=== PATIENT | female | born 1965 | race Two or more races ===

== ENCOUNTER 2020-08-20 13:59 | Inpatient (IN) | payer MEDICAID, OTHER ==
[~2020-08-20] VITALS: Ht 170.2 cm; Wt 97.8 kg
[2020-08-20] MEDS ORDERED: methylPREDNISolone SOD SUCC 125 MG/2 ML VL IV ONE (14:15)
[2020-08-20] MEDS ORDERED: ASCORBIC ACID 500 MG TAB PO ONE (14:15)
[2020-08-20] MEDS ORDERED: CHOLECALCIFEROL (VITD3) 2,000 UNIT CAP/TAB PO ONE (14:15)
[2020-08-20] MEDS ORDERED: AZITHROMYCIN 500MG/ 250ML 250 ML IV ONE (14:15)
[2020-08-20] MEDS ORDERED: ZINC SULFATE 220mg CAP or TAB PO ONE (14:15)
[2020-08-20] MEDS ORDERED: MORPHINE SULF INJ 2 MG/ML SYRINGE 1ML IV PRN ×3 (17:15→23:00)
[2020-08-20] MEDS ORDERED: NITROGLYCERIN 0.4 MG SL TAB SL PRN ×2 (17:15→23:00)
[2020-08-20] MEDS ORDERED: HYDR-4833 PO (17:46)
[2020-08-20] MEDS ORDERED: DICL25TA12 PO (17:46)
[2020-08-20] MEDS ORDERED: ROSU40TA PO (17:46)
[2020-08-20] MEDS ORDERED: CHOL20007 PO (17:46)
[2020-08-20] MEDS ORDERED: [UNRECOGNIZED DRUG - CODE] PO (17:46)
[2020-08-20] MEDS ORDERED: INSU1INJ19 SC (17:46)
[2020-08-20] MEDS ORDERED: DOCU-55 PO (17:46)
[2020-08-20] MEDS ORDERED: CLOP75TA28 PO (17:46)
[2020-08-20] MEDS ORDERED: FENO145T27 PO (17:46)
[2020-08-20] MEDS ORDERED: CARV25TA55 PO (17:46)
[2020-08-20] MEDS ORDERED: DIAZ10TA3 PO (17:46)
[2020-08-20] MEDS ORDERED: POTA8TAB2 PO (17:46)
[2020-08-20] MEDS ORDERED: INSU100I43 SC (17:46)
[2020-08-20] MEDS ORDERED: LORA-622 PO (17:46)
[2020-08-20] MEDS ORDERED: CYCL10TA6 PO (17:46)
[2020-08-20] MEDS ORDERED: FURO40TA4 PO (17:46)
[2020-08-20 18:33] LABS: Basophils # (auto) 0 10 ^3/uL (0-0.2); Basophils % (auto) 0.1 % (0.0-2.0); Eosinophils # (auto) 0 10 ^3/uL (0-0.8); Hematocrit 34.2 % (36.0-46.0); Hemoglobin 11.4 g/dL (12.2-16.2); Lymphocytes # (auto) 0.7 10 ^3/uL (0.4-5.4); Lymphocytes % (auto) 7.6 % (10.0-50.0); Mean Corpuscular Hemoglobin 29.4 pg (28.0-32.0); Mean Corpuscular Hgb Conc. 33.5 g/dL (32.0-36.0); Mean Corpuscular Volume 87.9 fL (80.0-100.0); Monocytes # (auto) 0.8 10 ^3/uL (0-1.3); Monocytes % (auto) 8.8 % (0.0-12.0); Neutrophils # (auto) 7.5 10 ^3/uL (1.6-8.6); Neutrophils % (auto) 83.5 % (37.0-80.0); Platelet Count (auto) 211 10^3/uL (140-450); Red Blood Cells 3.89 10^6/uL (4.0-5.20); Red Cell Distribution Width 15.7 % (11.8-14.3)
[2020-08-20 18:51] LABS: Albumin 2.5 g/dL (3.4-5.0); Anion Gap 7 (5-15); Blood Urea Nitrogen 65 mg/dL (7-18); Calcium 8.2 mg/dL (8.5-10.1); Carbon Dioxide 19 mmol/L (21-32); Chloride 111 mmol/L (98-107); Glucose 263 mg/dL (74-106); Potassium 4.8 mmol/L (3.5-5.1); Sodium 137 mmol/L (136-145)
[2020-08-20 19:00] LABS: Alanine Aminotransferase 39 U/L (13-56); Alkaline Phosphatase 58 U/L (45-117); Aspartate Aminotransferase 92 U/L (15-37); BUN/Creatinine Ratio 20.8; Bilirubin, Total 0.3 mg/dL (0.2-1.0); GFR African American 20 mL/min; GFR Non-African American 17 mL/min
[2020-08-20 19:11] LABS: CRP High Sensitivity > 19.0 mg/dL (< 0.3)
[2020-08-20] MEDS ORDERED: ENOXAPARIN SOD 100 MG/1 ML SYRINGE SC ONE (19:45)
[2020-08-20] MEDS: FAMOTIDINE (10MG/ML) 2ML VL IV SCH (20:47)
[2020-08-20] MEDS ORDERED: DOCUSATE SOD 100 MG CAP PO PRN (23:00)
[2020-08-20] MEDS ORDERED: ALUM & MAG HYDROX-SIMETH LIQ(MAALOX) 30 ML PO PRN (23:00)
[2020-08-20] MEDS ORDERED: ONDANSETRON HCL 4 MG/2 ML VIAL IV PRN (23:00)
[2020-08-20] MEDS ORDERED: LORazepam 0.5 MG TAB PO PRN (23:00)
[2020-08-20] MEDS ORDERED: DEXTROSE (50%) 50ML SYRG IV PRN (23:00)
[2020-08-20] MEDS ORDERED: ACETAMINOPHEN 500 MG TAB PO PRN (23:00)
[2020-08-20] MEDS ORDERED: HYDROcodone-ACET 5/325MG TAB PO PRN (23:00)
[2020-08-20] MEDS ORDERED: METOPROLOL SUCCINATE XL 50 MG TAB PO ONE (23:15)
[2020-08-21 01:00] VITALS: BP 137/68
[2020-08-21 01:34] LABS: Basophils # (auto) 0 10 ^3/uL (0-0.2); Basophils % (auto) 0.2 % (0.0-2.0); Eosinophils # (auto) 0 10 ^3/uL (0-0.8); Hemoglobin 11.3 g/dL (12.2-16.2); Lymphocytes # (auto) 0.7 10 ^3/uL (0.4-5.4); Lymphocytes % (auto) 7.6 % (10.0-50.0); Mean Corpuscular Hemoglobin 29.2 pg (28.0-32.0); Mean Corpuscular Hgb Conc. 33.3 g/dL (32.0-36.0); Mean Corpuscular Volume 87.7 fL (80.0-100.0); Monocytes # (auto) 0.8 10 ^3/uL (0-1.3); Monocytes % (auto) 8.3 % (0.0-12.0); Neutrophils # (auto) 8.1 10 ^3/uL (1.6-8.6); Neutrophils % (auto) 83.9 % (37.0-80.0); Platelet Count (auto) 244 10^3/uL (140-450); Red Blood Cells 3.88 10^6/uL (4.0-5.20); Red Cell Distribution Width 15.5 % (11.8-14.3); White Blood Cell 9.7 10^3/uL (4.4-10.8)
[2020-08-21 01:50] LABS: Chloride 111 mmol/L (98-107); Lactic Acid w/Reflex 2.3 mmol/L (0.4-2.0); Potassium 5.4 mmol/L (3.5-5.1); Sodium 138 mmol/L (136-145)
[2020-08-21 02:05] LABS: Alanine Aminotransferase 41 U/L (13-56); Albumin 2.5 g/dL (3.4-5.0); Alkaline Phosphatase 68 U/L (45-117); Anion Gap 5 (5-15); Aspartate Aminotransferase 95 U/L (15-37); BUN/Creatinine Ratio 24.9; Bilirubin, Total 0.3 mg/dL (0.2-1.0); Blood Urea Nitrogen 67 mg/dL (7-18); Calcium 8.5 mg/dL (8.5-10.1); Carbon Dioxide 22 mmol/L (21-32); GFR African American 24 mL/min; GFR Non-African American 20 mL/min; Glucose 331 mg/dL (74-106); Lactate Dehydrogenase 884 U/L (84-246); Magnesium 2.3 mg/dL (1.6-2.6); Total Protein 7.1 g/dL (6.4-8.2)
[2020-08-21 02:22] LABS: CRP High Sensitivity > 19.0 mg/dL (< 0.3)
[2020-08-21] MEDS ORDERED: BISA-3 PO (03:46)
[2020-08-21] MEDS ORDERED: FUROSEMIDE 20 MG/2 ML VIAL IV SCH (06:00)
[2020-08-21 06:13] LABS: Basophils # (auto) 0 10 ^3/uL (0-0.2); Basophils % (auto) 0.1 % (0.0-2.0); Eosinophils # (auto) 0 10 ^3/uL (0-0.8); Hemoglobin 11.5 g/dL (12.2-16.2); Lymphocytes # (auto) 0.9 10 ^3/uL (0.4-5.4); Lymphocytes % (auto) 8.3 % (10.0-50.0); Mean Corpuscular Hemoglobin 29.6 pg (28.0-32.0); Monocytes # (auto) 1.1 10 ^3/uL (0-1.3); Neutrophils # (auto) 8.6 10 ^3/uL (1.6-8.6); Neutrophils % (auto) 81.6 % (37.0-80.0); Platelet Count (auto) 245 10^3/uL (140-450); Red Blood Cells 3.91 10^6/uL (4.0-5.20); Red Cell Distribution Width 15.6 % (11.8-14.3); White Blood Cell 10.6 10^3/uL (4.4-10.8)
[2020-08-21 06:24] LABS: Partial Thromboplastin Time 38.4 sec (23.0-31.2)
[2020-08-21] MEDS: ACCU-CHEK COMFORT CURVE STRIP VI SCH ×4 (06:31→21:01)
[2020-08-21 06:32] LABS: Potassium 4.6 mmol/L (3.5-5.1)
[2020-08-21] MEDS: InsuLIN REG 1unit/0.01ml Soln (100units/ml) SC SCH ×4 (06:36→21:13)
[2020-08-21 06:44] LABS: Albumin 2.5 g/dL (3.4-5.0); BUN/Creatinine Ratio 25.2; Bilirubin, Total 0.3 mg/dL (0.2-1.0); Calcium 8.5 mg/dL (8.5-10.1); Magnesium 2.4 mg/dL (1.6-2.6); Phosphorus 3.8 mg/dL (2.5-4.90); Total Protein 7.3 g/dL (6.4-8.2)
[2020-08-21] MEDS ORDERED: FUROSEMIDE 40 MG/4 ML VIAL IV ONE (06:45)
[2020-08-21] MEDS: FUROSEMIDE 40 MG/4 ML VIAL IV SCH ×2 (06:58→17:51)
[2020-08-21 08:00] VITALS: BP 132/69
[2020-08-21] MEDS ORDERED: IVERMECTIN 3 MG TAB PO ONE (10:00)
[2020-08-21] MEDS: BUDESONIDE (INHALATION) 180 MCG IH IN SCH ×3 (10:00→21:59)
[2020-08-21] MEDS: DexAMETHasone SOD PHOS 10MG/1ML VIAL INJ IV SCH (10:17)
[2020-08-21] MEDS: ASPirin 81 mg TAB PO SCH (10:17)
[2020-08-21] MEDS: AZITHROMYCIN 500MG/ 250ML 250 ML IV SCH (10:17)
[2020-08-21] MEDS: ZINC SULFATE 220mg CAP or TAB PO SCH (10:17)
[2020-08-21] MEDS: FAMOTIDINE (10MG/ML) 2ML VL IV SCH (10:17)
[2020-08-21] MEDS: METOPROLOL SUCCINATE XL 50 MG TAB PO SCH (10:18)
[2020-08-21] MEDS: ASCORBIC ACID 1,000 MG TAB PO SCH (10:18)
[2020-08-21] MEDS: CHOLECALCIFEROL (VITD3) 2,000 UNIT CAP/TAB PO SCH (10:18)
[2020-08-21 16:00] VITALS: BP 110/58
[2020-08-21] MEDS: ENOXAPARIN SOD 100 MG/1 ML SYRINGE SC SCH (17:50)
[2020-08-21 19:54] LABS: Urine Bacteria FEW /hpf (None Seen); Urine Blood 2+ /uL (Negative); Urine Hyaline Cast FEW /lpf (0 - 2); Urine Mucus FEW (None Seen); Urine Specific Gravity 1.014 (1.001-1.035); Urine WBC 1 /hpf (0 - 5)
[2020-08-21 20:03] LABS: Amphetamine Screen, Urine NEGATIVE (NEGATIVE); Barbiturate Scree,Urine NEGATIVE (NEGATIVE); Benzodiazephine Screen, Urine POSITIVE (NEGATIVE); Cannabinoid Screen, Urine NEGATIVE (NEGATIVE); Cocaine Screen, Urine NEGATIVE (NEGATIVE); Opiate Scree,Urine NEGATIVE (NEGATIVE); Phencyclidine Screen, Urine NEGATIVE (NEGATIVE)
[2020-08-21] MEDS: ATORVASTATIN 20 MG TAB PO SCH (21:14)
[2020-08-21] MEDS: ALBUTEROL SULF HFA 90MCG INH 200DOSE IN PRN (21:59)
[2020-08-22 00:30] VITALS: BP 143/79
[2020-08-22] MEDS: FUROSEMIDE 40 MG/4 ML VIAL IV SCH ×2 (06:00→18:26)
[2020-08-22] MEDS: InsuLIN REG 1unit/0.01ml Soln (100units/ml) SC SCH ×4 (06:02→21:58)
[2020-08-22] MEDS: INSULIN LANTUS (GLARGINE) 1 /0.01ml (100units/ml) SC SCH ×2 (06:03→22:12)
[2020-08-22] MEDS: ACCU-CHEK COMFORT CURVE STRIP VI SCH ×4 (06:04→22:11)
[2020-08-22] MEDS: ALBUTEROL SULF HFA 90MCG INH 200DOSE IN PRN ×2 (07:06→21:50)
[2020-08-22] MEDS: BUDESONIDE (INHALATION) 180 MCG IH IN SCH ×2 (07:06→21:50)
[2020-08-22 07:14] LABS: Basophils # (auto) 0 10 ^3/uL (0-0.2); Basophils % (auto) 0.1 % (0.0-2.0); Eosinophils # (auto) 0 10 ^3/uL (0-0.8); Hemoglobin 12.4 g/dL (12.2-16.2); Lymphocytes # (auto) 1.5 10 ^3/uL (0.4-5.4); Lymphocytes % (auto) 8.9 % (10.0-50.0); Mean Corpuscular Hemoglobin 29.1 pg (28.0-32.0); Mean Corpuscular Hgb Conc. 33.5 g/dL (32.0-36.0); Mean Corpuscular Volume 86.8 fL (80.0-100.0); Monocytes # (auto) 1.7 10 ^3/uL (0-1.3); Monocytes % (auto) 10.4 % (0.0-12.0); Neutrophils # (auto) 13.2 10 ^3/uL (1.6-8.6); Neutrophils % (auto) 80.6 % (37.0-80.0); Nucleated Red Blood Cells % 0.1 %; Platelet Count (auto) 339 10^3/uL (140-450); Red Blood Cells 4.26 10^6/uL (4.0-5.20); Red Cell Distribution Width 15.6 % (11.8-14.3); White Blood Cell 16.3 10^3/uL (4.4-10.8)
[2020-08-22 07:24] LABS: Albumin 2.6 g/dL (3.4-5.0); Calcium 9.3 mg/dL (8.5-10.1); Magnesium 2.4 mg/dL (1.6-2.6); Potassium 4.5 mmol/L (3.5-5.1)
[2020-08-22 07:25] LABS: INR 0.99 (0.9-1.15); Partial Thromboplastin Time 33.6 sec (23.0-31.2)
[2020-08-22 07:28] LABS: BUN/Creatinine Ratio 26.3; Bilirubin, Total 0.3 mg/dL (0.2-1.0); Phosphorus 2.4 mg/dL (2.5-4.90); Total Protein 7.8 g/dL (6.4-8.2)
[2020-08-22 07:59] VITALS: BP 120/60
[2020-08-22] MEDS: DexAMETHasone SOD PHOS 10MG/1ML VIAL INJ IV SCH (09:52)
[2020-08-22] MEDS: AZITHROMYCIN 500MG/ 250ML 250 ML IV SCH (09:53)
[2020-08-22] MEDS: ASPirin 81 mg TAB PO SCH (09:53)
[2020-08-22] MEDS: FAMOTIDINE (10MG/ML) 2ML VL IV SCH (09:53)
[2020-08-22] MEDS: ZINC SULFATE 220mg CAP or TAB PO SCH (09:53)
[2020-08-22] MEDS: CHOLECALCIFEROL (VITD3) 2,000 UNIT CAP/TAB PO SCH (09:54)
[2020-08-22] MEDS: METOPROLOL SUCCINATE XL 50 MG TAB PO SCH (09:54)
[2020-08-22] MEDS: ASCORBIC ACID 1,000 MG TAB PO SCH (09:54)
[2020-08-22] MEDS ORDERED: cefTRIAXone 1GM/50ML D5W 50 ML IV ONE (15:45)
[2020-08-22] MEDS ORDERED: REMDESIVIR PER PHARMACY 0 ML IV SCH (15:45)
[2020-08-22 15:56] VITALS: BP 111/66
[2020-08-22] MEDS ORDERED: REMDESIVIR 100mg 100 MG in SODIUM CHL 0.9% 230 ML IV ONE (17:00)
[2020-08-22] MEDS: ENOXAPARIN SOD 100 MG/1 ML SYRINGE SC SCH (18:27)
[2020-08-22] MEDS ORDERED: diphenhdrAMINE HCL 50 MG/1 ML VL IV ONE (20:00)
[2020-08-22] MEDS ORDERED: methylPREDNISolone SOD SUCC 40 MG/ML VL IV ONE (20:00)
[2020-08-22] MEDS ORDERED: ACETAMINOPHEN 650 mg PER 20.3 mL UD PO ONE (20:00)
[2020-08-22] MEDS ORDERED: methylPREDNISolone SOD SUCC 40 MG/ML VL ONE (20:06)
[2020-08-22] MEDS ORDERED: TOCILIZUMAB 400 MG in SODIUM CHL 0.9% 80 ML IV ONE (20:30)
[2020-08-22] MEDS: ATORVASTATIN 20 MG TAB PO SCH (21:54)
[2020-08-23] VITALS: BP 138/67
[2020-08-23] MEDS: FUROSEMIDE 40 MG/4 ML VIAL IV SCH (06:44)
[2020-08-23] MEDS: InsuLIN REG 1unit/0.01ml Soln (100units/ml) SC SCH ×4 (06:47→21:45)
[2020-08-23] MEDS: INSULIN LANTUS (GLARGINE) 1 /0.01ml (100units/ml) SC SCH ×2 (06:48→22:30)
[2020-08-23] MEDS: ACCU-CHEK COMFORT CURVE STRIP VI SCH ×4 (07:00→21:47)
[2020-08-23 08:00] VITALS: BP 134/100
[2020-08-23] MEDS: cefTRIAXone 1GM/50ML D5W 50 ML IV SCH (08:57)
[2020-08-23] MEDS ORDERED: methylPREDNISolone SOD SUCC 40 MG/ML VL IV ONE (10:00)
[2020-08-23] MEDS: BUDESONIDE (INHALATION) 180 MCG IH IN SCH ×3 (10:00→20:41)
[2020-08-23] MEDS ORDERED: diphenhdrAMINE HCL 50 MG/1 ML VL IV ONE (10:00)
[2020-08-23] MEDS ORDERED: ACETAMINOPHEN 650 mg PER 20.3 mL UD PO ONE (10:00)
[2020-08-23] MEDS: ASPirin 81 mg TAB PO SCH (10:28)
[2020-08-23] MEDS: ZINC SULFATE 220mg CAP or TAB PO SCH (10:28)
[2020-08-23] MEDS: METOPROLOL SUCCINATE XL 50 MG TAB PO SCH (10:28)
[2020-08-23] MEDS: CHOLECALCIFEROL (VITD3) 2,000 UNIT CAP/TAB PO SCH (10:29)
[2020-08-23] MEDS: DexAMETHasone SOD PHOS 10MG/1ML VIAL INJ IV SCH (10:29)
[2020-08-23] MEDS: ASCORBIC ACID 1,000 MG TAB PO SCH (10:29)
[2020-08-23] MEDS: FAMOTIDINE (10MG/ML) 2ML VL IV SCH (10:29)
[2020-08-23] MEDS ORDERED: TOCILIZUMAB 400 MG in SODIUM CHL 0.9% 80 ML IV ONE (10:30)
[2020-08-23 10:36] LABS: Albumin 2.4 g/dL (3.4-5.0); Anion Gap 8 (5-15); Blood Urea Nitrogen 79 mg/dL (7-18); Calcium 9.1 mg/dL (8.5-10.1); Carbon Dioxide 20 mmol/L (21-32); Chloride 109 mmol/L (98-107); Glucose 339 mg/dL (74-106); Sodium 137 mmol/L (136-145)
[2020-08-23 10:46] LABS: Alanine Aminotransferase 37 U/L (13-56); Alkaline Phosphatase 146 U/L (45-117); Aspartate Aminotransferase 72 U/L (15-37); BUN/Creatinine Ratio 27.2; Bilirubin, Total 0.3 mg/dL (0.2-1.0); GFR African American 22 mL/min; GFR Non-African American 18 mL/min; Lactate Dehydrogenase 1331 U/L (84-246); Total Protein 7.8 g/dL (6.4-8.2)
[2020-08-23 10:51] LABS: CRP High Sensitivity > 19 mg/dL (< 0.3)
[2020-08-23] MEDS: AZITHROMYCIN 500MG/ 250ML 250 ML IV SCH (12:49)
[2020-08-23 13:30] VITALS: BP 133/89
[2020-08-23] MEDS: SODIUM BICARBONATE 50ML VIAL 50 ML in SOD CHL 0.45% 1,000 ML IV SCH ×2 (15:30→23:52)
[2020-08-23] MEDS: REMDESIVIR 100mg 50 MG in SODIUM CHL 0.9% 240 ML IV SCH (15:45)
[2020-08-23 16:00] VITALS: BP 143/91
[2020-08-23] MEDS: ENOXAPARIN SOD 100 MG/1 ML SYRINGE SC SCH (17:06)
[2020-08-23 17:54] LABS: Urine Bacteria NONE SEEN /hpf (None Seen); Urine Blood 2+ /uL (Negative); Urine Hyaline Cast FEW /lpf (0 - 2); Urine Specific Gravity 1.018 (1.001-1.035); Urine WBC 3 /hpf (0 - 5)
[2020-08-23 18:09] LABS: Creatinine, Urine 99 mg/dL (30.0-125.0); Sodium Urine 35 mmol/L (40-220)
[2020-08-23] MEDS: ALBUTEROL SULF HFA 90MCG INH 200DOSE IN PRN (20:41)
[2020-08-23] MEDS: DOPamine 1600MCG/ML D5W 250 ML IV SCH (20:47)
[2020-08-23] MEDS: ATORVASTATIN 20 MG TAB PO SCH (21:47)
[2020-08-24] VITALS (57 sets, daily range): BP systolic 58–192; BP diastolic 26–81
[2020-08-24] MEDS: BUDESONIDE (INHALATION) 180 MCG IH IN SCH ×2 (06:37→22:00)
[2020-08-24] MEDS: ALBUTEROL SULF HFA 90MCG INH 200DOSE IN PRN (06:37)
[2020-08-24] MEDS: InsuLIN REG 1unit/0.01ml Soln (100units/ml) SC SCH ×4 (06:52→22:00)
[2020-08-24] MEDS: ACCU-CHEK COMFORT CURVE STRIP VI SCH ×4 (06:53→22:00)
[2020-08-24] MEDS: INSULIN LANTUS (GLARGINE) 1 /0.01ml (100units/ml) SC SCH ×2 (06:53→22:00)
[2020-08-24 07:48] LABS: Red Blood Cells 4.49 10^6/uL (4.0-5.20)
[2020-08-24 07:51] LABS: Hematocrit 39.2 % (36.0-46.0); Hemoglobin 13.2 g/dL (12.2-16.2); Mean Corpuscular Hemoglobin 29.5 pg (28.0-32.0); Mean Corpuscular Hgb Conc. 33.7 g/dL (32.0-36.0); Mean Corpuscular Volume 87.4 fL (80.0-100.0); Platelet Count (auto) 465 10^3/uL (140-450); White Blood Cell 28.6 10^3/uL (4.4-10.8)
[2020-08-24 07:57] LABS: Basophils % (manual) 0 (0.0-2.0); Blast Cells 0; Eosinophils % (manual) 0 (0-7); Promyelocytes % 0; Reactive Lymphocytes 0
[2020-08-24 08:15] LABS: Albumin 2.4 g/dL (3.4-5.0); Potassium 5.1 mmol/L (3.5-5.1)
[2020-08-24 08:18] LABS: Bilirubin, Total 0.3 mg/dL (0.2-1.0); Total Protein 7.9 g/dL (6.4-8.2)
[2020-08-24] MEDS ORDERED: PROPOFOL 100 ML IV ONE (09:53)
[2020-08-24] MEDS: METOPROLOL SUCCINATE XL 50 MG TAB PO SCH (10:00)
[2020-08-24] MEDS: AZITHROMYCIN 500MG/ 250ML 250 ML IV SCH (10:00)
[2020-08-24] MEDS ORDERED: NOREPINEPHRINE 8 MG/250ML KIT 250 ML IV ONE (11:03)
[2020-08-24] MEDS ORDERED: EPINEPHrine HCL 1 MG/10 ML SYRG IV ONE (12:04)
[2020-08-24] MEDS: cefTRIAXone 1GM/50ML D5W 50 ML IV SCH (12:30)
[2020-08-24] MEDS: NOREPINEPHRINE 8 MG/250ML KIT 250 ML IV SCH (12:45)
[2020-08-24] MEDS: PROPOFOL 100 ML IV SCH ×2 (12:55→21:30)
[2020-08-24] MEDS: fentaNYL Drip 2500mCg/250mlNS 250 ML IV SCH ×2 (13:00→23:05)
[2020-08-24 13:06] LABS: Band Neutrophils % (manual) 2; Lymphocytes % (manual) 9 (10.0-50.0); Metamyelocytes % 2; Monocytes % (manual) 6 (0-12); Myelocytes % 2
[2020-08-24] MEDS ORDERED: MIDAZOLAM DRIP 50 mg/50mL 50 ML IV ONE ×2 (13:08→17:23)
[2020-08-24] MEDS ORDERED: LORazepam 2MG/ML-1ML VIAL ONE (15:44)
[2020-08-24] MEDS: FAMOTIDINE (10MG/ML) 2ML VL IV SCH (16:16)
[2020-08-24] MEDS: ZINC SULFATE 220mg CAP or TAB PO SCH (16:16)
[2020-08-24] MEDS: ASPirin 81 mg TAB PO SCH (16:16)
[2020-08-24] MEDS: ASCORBIC ACID 1,000 MG TAB PO SCH (16:23)
[2020-08-24] MEDS: CHOLECALCIFEROL (VITD3) 2,000 UNIT CAP/TAB PO SCH (16:24)
[2020-08-24] MEDS: DexAMETHasone SOD PHOS 10MG/1ML VIAL INJ IV SCH (16:24)
[2020-08-24] MEDS ORDERED: SODIUM BICARBONATE 8.4 % INJ 50ML VIAL IV ONE (16:35)
[2020-08-24] MEDS ORDERED: PANTOPRAZOLE 40 MG/10 ML VIAL INJ IV ONE (16:45)
[2020-08-24] MEDS: REMDESIVIR 100mg 50 MG in SODIUM CHL 0.9% 240 ML IV SCH (17:00)
[2020-08-24] MEDS: SODIUM BICARBONATE 50ML VIAL 50 ML in SOD CHL 0.45% 1,000 ML IV SCH (17:00)
[2020-08-24] MEDS: DOPamine 1600MCG/ML D5W 250 ML IV SCH (18:00)
[2020-08-24] MEDS ORDERED: FLUCONAZOLE 200MG/100ML 100 ML IV ONE (18:00)
[2020-08-24] MEDS ORDERED: LORazepam 2MG/ML-1ML VIAL IV PRN (18:30)
[2020-08-24] MEDS: PIPERACILLIN-TAZOB 2.25GM 50 ML IV SCH ×2 (20:44→23:58)
[2020-08-24] MEDS: ENOXAPARIN SOD 100 MG/1 ML SYRINGE SC SCH (22:00)
[2020-08-24] MEDS ORDERED: PIPERACILLIN-TAZOB 3.375GM 100 ML IV SCH (22:00)
[2020-08-24] MEDS: ATORVASTATIN 20 MG TAB PO SCH (22:00)
[2020-08-24] MEDS: MIDAZOLAM DRIP 50 mg/50mL 50 ML IV SCH (22:30)
[2020-08-25] VITALS (96 sets, daily range): BP systolic 87–171; BP diastolic 50–81
[2020-08-25] MEDS: PROPOFOL 100 ML IV SCH ×3 (00:30→11:27)
[2020-08-25] MEDS: MIDAZOLAM DRIP 50 mg/50mL 50 ML IV SCH ×3 (01:30→08:00)
[2020-08-25] MEDS: SODIUM BICARBONATE 50ML VIAL 50 ML in SOD CHL 0.45% 1,000 ML IV SCH ×3 (04:39→20:00)
[2020-08-25] MEDS ORDERED: SODIUM BICARBONATE 8.4 % INJ 50ML VIAL IV ONE ×2 (05:28→16:50)
[2020-08-25] MEDS: PIPERACILLIN-TAZOB 2.25GM 50 ML IV SCH ×3 (06:00→18:18)
[2020-08-25] MEDS: INSULIN LANTUS (GLARGINE) 1 /0.01ml (100units/ml) SC SCH ×2 (06:31→21:26)
[2020-08-25] MEDS: InsuLIN REG 1unit/0.01ml Soln (100units/ml) SC SCH ×4 (06:31→21:26)
[2020-08-25] MEDS: ACCU-CHEK COMFORT CURVE STRIP VI SCH ×4 (06:32→21:25)
[2020-08-25 06:51] LABS: Hematocrit 32.8 % (36.0-46.0); Hemoglobin 11.8 g/dL (12.2-16.2); Mean Corpuscular Hemoglobin 31.6 pg (28.0-32.0); Mean Corpuscular Hgb Conc. 35.8 g/dL (32.0-36.0); Mean Corpuscular Volume 88.1 fL (80.0-100.0); Platelet Count (auto) 425 10^3/uL (140-450); Red Blood Cells 3.73 10^6/uL (4.0-5.20); White Blood Cell 25.9 10^3/uL (4.4-10.8)
[2020-08-25 06:57] LABS: Basophils % (manual) 0 (0.0-2.0); Blast Cells 0; Eosinophils % (manual) 0 (0-7); Metamyelocytes % 0; Promyelocytes % 0; Reactive Lymphocytes 0
[2020-08-25 07:15] LABS: Calcium 7.4 mg/dL (8.5-10.1); Potassium 5.5 mmol/L (3.5-5.1)
[2020-08-25 07:23] LABS: Bilirubin, Total 0.6 mg/dL (0.2-1.0)
[2020-08-25] MEDS: ASPirin 81 mg TAB PO SCH (09:35)
[2020-08-25] MEDS: FAMOTIDINE (10MG/ML) 2ML VL IV SCH (09:35)
[2020-08-25] MEDS: SODIUM ZIRCONIUM CYCL 10 GM PAK GT SCH ×2 (09:35→20:23)
[2020-08-25] MEDS: ZINC SULFATE 220mg CAP or TAB PO SCH (09:35)
[2020-08-25] MEDS: ASCORBIC ACID 1,000 MG TAB PO SCH (09:35)
[2020-08-25] MEDS: DexAMETHasone SOD PHOS 10MG/1ML VIAL INJ IV SCH (09:35)
[2020-08-25] MEDS: CHOLECALCIFEROL (VITD3) 2,000 UNIT CAP/TAB PO SCH (09:35)
[2020-08-25] MEDS: AZITHROMYCIN 500MG/ 250ML 250 ML IV SCH (09:35)
[2020-08-25] MEDS: PANTOPRAZOLE 40 MG/10 ML VIAL INJ IV SCH (10:00)
[2020-08-25] MEDS: FLUCONAZOLE 200MG/100ML 100 ML IV SCH (11:45)
[2020-08-25 12:24] LABS: Monocytes % (manual) 4 (0-12); Myelocytes % 1
[2020-08-25 12:25] LABS: Band Neutrophils % (manual) 7; Lymphocytes % (manual) 6 (10.0-50.0)
[2020-08-25] MEDS: NOREPINEPHRINE 8 MG/250ML KIT 250 ML IV SCH (12:45)
[2020-08-25 13:15] LABS: BUN/Creatinine Ratio 28.3; Total Protein 6.3 g/dL (6.4-8.2)
[2020-08-25] MEDS: REMDESIVIR 100mg 50 MG in SODIUM CHL 0.9% 240 ML IV SCH (17:08)
[2020-08-25] MEDS: DOPamine 1600MCG/ML D5W 250 ML IV SCH (18:18)
[2020-08-25] MEDS: ENOXAPARIN SOD 100 MG/1 ML SYRINGE SC SCH (18:18)
[2020-08-25] MEDS: ATORVASTATIN 20 MG TAB PO SCH (20:23)
[2020-08-26] VITALS (94 sets, daily range): BP systolic 109–180; BP diastolic 51–83
[2020-08-26 01:48] LABS: Hematocrit 32.2 % (36.0-46.0); Hemoglobin 11.5 g/dL (12.2-16.2); Mean Corpuscular Hemoglobin 31.1 pg (28.0-32.0); Mean Corpuscular Hgb Conc. 35.8 g/dL (32.0-36.0); Mean Corpuscular Volume 87.1 fL (80.0-100.0); Platelet Count (auto) 426 10^3/uL (140-450); Red Cell Distribution Width 15.7 % (11.8-14.3); White Blood Cell 29.3 10^3/uL (4.4-10.8)
[2020-08-26 01:49] LABS: Basophils % (manual) 0 (0.0-2.0); Blast Cells 0; Eosinophils % (manual) 0 (0-7); Metamyelocytes % 0; Myelocytes % 0; Promyelocytes % 0; Reactive Lymphocytes 0
[2020-08-26 02:08] LABS: Albumin 1.9 g/dL (3.4-5.0); Calcium 7.7 mg/dL (8.5-10.1); Potassium 5.1 mmol/L (3.5-5.1)
[2020-08-26 02:16] LABS: Band Neutrophils % (manual) 11; Lymphocytes % (manual) 3 (10.0-50.0); Monocytes % (manual) 4 (0-12)
[2020-08-26 02:20] LABS: Bilirubin, Total 0.6 mg/dL (0.2-1.0)
[2020-08-26 02:54] LABS: BUN/Creatinine Ratio 28.3
[2020-08-26 02:59] LABS: Total Protein 5.6 g/dL (6.4-8.2)
[2020-08-26] MEDS: SODIUM BICARBONATE 50ML VIAL 50 ML in SOD CHL 0.45% 1,000 ML IV SCH ×3 (04:00→21:00)
[2020-08-26] MEDS: PIPERACILLIN-TAZOB 2.25GM 50 ML IV SCH ×3 (05:51→12:05)
[2020-08-26] MEDS: InsuLIN REG 1unit/0.01ml Soln (100units/ml) SC SCH ×4 (06:01→21:29)
[2020-08-26] MEDS: INSULIN LANTUS (GLARGINE) 1 /0.01ml (100units/ml) SC SCH ×2 (06:02→21:30)
[2020-08-26] MEDS: ACCU-CHEK COMFORT CURVE STRIP VI SCH ×4 (06:03→21:34)
[2020-08-26] MEDS: PROPOFOL 100 ML IV SCH ×2 (09:14→13:14)
[2020-08-26] MEDS: MIDAZOLAM DRIP 50 mg/50mL 50 ML IV SCH ×2 (09:15→13:30)
[2020-08-26] MEDS: FAMOTIDINE (10MG/ML) 2ML VL IV SCH (10:00)
[2020-08-26] MEDS: CHOLECALCIFEROL (VITD3) 2,000 UNIT CAP/TAB PO SCH (10:00)
[2020-08-26] MEDS: PANTOPRAZOLE 40 MG/10 ML VIAL INJ IV SCH (10:00)
[2020-08-26] MEDS: ASCORBIC ACID 1,000 MG TAB PO SCH (10:00)
[2020-08-26] MEDS: FLUCONAZOLE 200MG/100ML 100 ML IV SCH (10:31)
[2020-08-26] MEDS: SODIUM ZIRCONIUM CYCL 10 GM PAK GT SCH ×2 (10:31→21:45)
[2020-08-26] MEDS: DexAMETHasone SOD PHOS 10MG/1ML VIAL INJ IV SCH (10:31)
[2020-08-26] MEDS: ASPirin 81 mg TAB PO SCH (10:31)
[2020-08-26] MEDS: ZINC SULFATE 220mg CAP or TAB PO SCH (10:31)
[2020-08-26] MEDS: fentaNYL Drip 2500mCg/250mlNS 250 ML IV SCH (11:10)
[2020-08-26] MEDS: NOREPINEPHRINE 8 MG/250ML KIT 250 ML IV SCH (12:45)
[2020-08-26] MEDS ORDERED: SODIUM ZIRCONIUM CYCL 10 GM PAK PO ONE (14:30)
[2020-08-26] MEDS: DOPamine 1600MCG/ML D5W 250 ML IV SCH (15:30)
[2020-08-26] MEDS: REMDESIVIR 100mg 50 MG in SODIUM CHL 0.9% 240 ML IV SCH (15:30)
[2020-08-26] MEDS: hydrALAZINE HCL 20 MG/ML VL IV PRN (16:45)
[2020-08-26] MEDS: ENOXAPARIN SOD 100 MG/1 ML SYRINGE SC SCH (18:26)
[2020-08-26] MEDS: MEROPENEM 1GM IVPB 100 ML IV SCH (21:45)
[2020-08-26] MEDS: ATORVASTATIN 20 MG TAB PO SCH (21:46)
[2020-08-26] MEDS: LINEZOLID 600MG/300ML 300 ML IV SCH (22:00)
[2020-08-27] VITALS (85 sets, daily range): BP systolic 92–170; BP diastolic 45–73
[2020-08-27 04:27] LABS: Hemoglobin 11.3 g/dL (12.2-16.2); Mean Corpuscular Hemoglobin 30.7 pg (28.0-32.0)
[2020-08-27 04:32] LABS: Mean Corpuscular Hgb Conc. 35.3 g/dL (32.0-36.0); Mean Corpuscular Volume 87.1 fL (80.0-100.0); Platelet Count (auto) 451 10^3/uL (140-450); Red Blood Cells 3.67 10^6/uL (4.0-5.20); Red Cell Distribution Width 16.2 % (11.8-14.3)
[2020-08-27 04:50] LABS: Basophils % (manual) 0 (0.0-2.0); Blast Cells 0; Eosinophils % (manual) 0 (0-7); Metamyelocytes % 0; Myelocytes % 0; Promyelocytes % 0; Reactive Lymphocytes 0; White Blood Cell 36.1 10^3/uL (4.4-10.8)
[2020-08-27 05:03] LABS: Albumin 1.9 g/dL (3.4-5.0); Bilirubin, Total 0.6 mg/dL (0.2-1.0); Calcium 7.5 mg/dL (8.5-10.1)
[2020-08-27 05:29] LABS: BUN/Creatinine Ratio 30.9; Total Protein 5.9 g/dL (6.4-8.2)
[2020-08-27 06:10] LABS: Band Neutrophils % (manual) 13; Lymphocytes % (manual) 5 (10.0-50.0); Monocytes % (manual) 4 (0-12)
[2020-08-27] MEDS: ACCU-CHEK COMFORT CURVE STRIP VI SCH ×4 (06:46→21:25)
[2020-08-27] MEDS: SODIUM BICARBONATE 50ML VIAL 50 ML in SOD CHL 0.45% 1,000 ML IV SCH ×2 (06:46→14:00)
[2020-08-27] MEDS: InsuLIN REG 1unit/0.01ml Soln (100units/ml) SC SCH ×4 (06:56→21:24)
[2020-08-27] MEDS: INSULIN LANTUS (GLARGINE) 1 /0.01ml (100units/ml) SC SCH ×2 (06:58→21:26)
[2020-08-27] MEDS: fentaNYL Drip 2500mCg/250mlNS 250 ML IV SCH (07:00)
[2020-08-27] MEDS: PROPOFOL 100 ML IV SCH ×3 (09:31→18:14)
[2020-08-27] MEDS: LINEZOLID 600MG/300ML 300 ML IV SCH ×2 (10:00→21:00)
[2020-08-27] MEDS: PANTOPRAZOLE 40 MG/10 ML VIAL INJ IV SCH (10:00)
[2020-08-27] MEDS: ASCORBIC ACID 1,000 MG TAB PO SCH (10:02)
[2020-08-27] MEDS: ASPirin 81 mg TAB PO SCH (10:02)
[2020-08-27] MEDS: CHOLECALCIFEROL (VITD3) 2,000 UNIT CAP/TAB PO SCH (10:02)
[2020-08-27] MEDS: ZINC SULFATE 220mg CAP or TAB PO SCH (10:02)
[2020-08-27] MEDS: DexAMETHasone SOD PHOS 10MG/1ML VIAL INJ IV SCH (10:02)
[2020-08-27] MEDS: FLUCONAZOLE 200MG/100ML 100 ML IV SCH (10:02)
[2020-08-27] MEDS: FAMOTIDINE (10MG/ML) 2ML VL IV SCH (10:02)
[2020-08-27] MEDS ORDERED: METOCLOPRAMIDE HCL 5MG/ml INJ 2ml VIAL IV ONE (11:15)
[2020-08-27] MEDS: MEROPENEM 1GM IVPB 100 ML IV SCH ×2 (11:39→22:00)
[2020-08-27] MEDS: MIDAZOLAM DRIP 50 mg/50mL 50 ML IV SCH ×2 (12:11→18:15)
[2020-08-27] MEDS: NOREPINEPHRINE 8 MG/250ML KIT 250 ML IV SCH (12:45)
[2020-08-27] MEDS ORDERED: SODIUM BICARBONATE 8.4 % INJ 50ML VIAL IV ONE (14:03)
[2020-08-27] MEDS: DOPamine 1600MCG/ML D5W 250 ML IV SCH (15:30)
[2020-08-27] MEDS: ENOXAPARIN SOD 100 MG/1 ML SYRINGE SC SCH (18:09)
[2020-08-27] MEDS: METOCLOPRAMIDE HCL 5MG/ml INJ 2ml VIAL IV SCH (21:17)
[2020-08-27] MEDS: ATORVASTATIN 20 MG TAB PO SCH (21:17)
[2020-08-28] VITALS (98 sets, daily range): BP systolic 82–136; BP diastolic 38–64
[2020-08-28 03:11] LABS: Hematocrit 27.3 % (36.0-46.0); Hemoglobin 9.5 g/dL (12.2-16.2); Mean Corpuscular Hemoglobin 30.4 pg (28.0-32.0); Mean Corpuscular Hgb Conc. 34.8 g/dL (32.0-36.0); Mean Corpuscular Volume 87.3 fL (80.0-100.0); Platelet Count (auto) 367 10^3/uL (140-450); Red Blood Cells 3.13 10^6/uL (4.0-5.20); White Blood Cell 28.9 10^3/uL (4.4-10.8)
[2020-08-28 03:18] LABS: Blast Cells 0; Myelocytes % 0; Promyelocytes % 0; Reactive Lymphocytes 0
[2020-08-28 03:26] LABS: Albumin 1.6 g/dL (3.4-5.0); Calcium 7.3 mg/dL (8.5-10.1); Potassium 4.4 mmol/L (3.5-5.1)
[2020-08-28 03:31] LABS: BUN/Creatinine Ratio 31.3; Bilirubin, Total 0.5 mg/dL (0.2-1.0)
[2020-08-28] MEDS: SODIUM BICARBONATE 50ML VIAL 50 ML in SOD CHL 0.45% 1,000 ML IV SCH (04:00)
[2020-08-28 04:08] LABS: Basophils % (manual) 1 (0.0-2.0); Eosinophils % (manual) 2 (0-7); Lymphocytes % (manual) 4 (10.0-50.0); Metamyelocytes % 2
[2020-08-28 04:09] LABS: Band Neutrophils % (manual) 18; Monocytes % (manual) 5 (0-12)
[2020-08-28] MEDS: METOCLOPRAMIDE HCL 5MG/ml INJ 2ml VIAL IV SCH ×3 (06:00→22:00)
[2020-08-28] MEDS: ACCU-CHEK COMFORT CURVE STRIP VI SCH ×4 (06:14→22:00)
[2020-08-28] MEDS: INSULIN LANTUS (GLARGINE) 1 /0.01ml (100units/ml) SC SCH ×2 (06:14→22:00)
[2020-08-28] MEDS: InsuLIN REG 1unit/0.01ml Soln (100units/ml) SC SCH ×4 (06:15→22:00)
[2020-08-28] MEDS: PROPOFOL 100 ML IV SCH ×3 (08:34→16:20)
[2020-08-28] MEDS: MIDAZOLAM DRIP 50 mg/50mL 50 ML IV SCH ×4 (08:34→18:30)
[2020-08-28] MEDS: FLUCONAZOLE 200MG/100ML 100 ML IV SCH (09:07)
[2020-08-28] MEDS: FAMOTIDINE (10MG/ML) 2ML VL IV SCH (09:12)
[2020-08-28] MEDS: PANTOPRAZOLE 40 MG/10 ML VIAL INJ IV SCH (09:12)
[2020-08-28] MEDS: ASCORBIC ACID 1,000 MG TAB PO SCH (09:13)
[2020-08-28] MEDS: ASPirin 81 mg TAB PO SCH (09:13)
[2020-08-28] MEDS: ZINC SULFATE 220mg CAP or TAB PO SCH (09:13)
[2020-08-28] MEDS: CHOLECALCIFEROL (VITD3) 2,000 UNIT CAP/TAB PO SCH (09:13)
[2020-08-28] MEDS: LINEZOLID 600MG/300ML 300 ML IV SCH ×2 (10:20→22:00)
[2020-08-28] MEDS: MEROPENEM 1GM IVPB 100 ML IV SCH ×2 (12:00→22:00)
[2020-08-28] MEDS: fentaNYL Drip 2500mCg/250mlNS 250 ML IV SCH ×2 (12:45→17:30)
[2020-08-28] MEDS: NOREPINEPHRINE 8 MG/250ML KIT 250 ML IV SCH (12:45)
[2020-08-28] MEDS: DOPamine 1600MCG/ML D5W 250 ML IV SCH (15:30)
[2020-08-28] MEDS: SOD CHL 0.45% 1,000 ML IV SCH (16:00)
[2020-08-28] MEDS: ENOXAPARIN SOD 100 MG/1 ML SYRINGE SC SCH (18:25)
[2020-08-28] MEDS: ATORVASTATIN 20 MG TAB PO SCH (22:00)
[2020-08-29] VITALS (69 sets, daily range): BP systolic 113–184; BP diastolic 48–79
[2020-08-29] MEDS: SOD CHL 0.45% 1,000 ML IV SCH ×2 (04:00→17:40)
[2020-08-29 04:39] LABS: Hematocrit 35.9 % (36.0-46.0); Hemoglobin 12.3 g/dL (12.2-16.2); Mean Corpuscular Hemoglobin 31.2 pg (28.0-32.0); Mean Corpuscular Hgb Conc. 34.2 g/dL (32.0-36.0); Mean Corpuscular Volume 91.2 fL (80.0-100.0); Platelet Count (auto) 327 10^3/uL (140-450); Red Blood Cells 3.93 10^6/uL (4.0-5.20); Red Cell Distribution Width 16.2 % (11.8-14.3)
[2020-08-29 04:57] LABS: Chloride 113 mmol/L (98-107); Potassium 4.8 mmol/L (3.5-5.1); Sodium 141 mmol/L (136-145)
[2020-08-29 05:06] LABS: Albumin 1.6 g/dL (3.4-5.0); Alkaline Phosphatase 318 U/L (45-117); Aspartate Aminotransferase 132 U/L (15-37); Bilirubin, Total 0.6 mg/dL (0.2-1.0); Calcium 7.4 mg/dL (8.5-10.1); GFR African American 47 mL/min; GFR Non-African American 39 mL/min; Glucose 165 mg/dL (74-106)
[2020-08-29 05:51] LABS: White Blood Cell 31.4 10^3/uL (4.4-10.8)
[2020-08-29 05:53] LABS: Basophils % (manual) 0 (0.0-2.0); Blast Cells 0; Promyelocytes % 0; Reactive Lymphocytes 0
[2020-08-29] MEDS: InsuLIN REG 1unit/0.01ml Soln (100units/ml) SC SCH ×4 (05:56→22:00)
[2020-08-29] MEDS: ACCU-CHEK COMFORT CURVE STRIP VI SCH ×3 (05:56→22:00)
[2020-08-29] MEDS: INSULIN LANTUS (GLARGINE) 1 /0.01ml (100units/ml) SC SCH ×2 (05:58→22:00)
[2020-08-29] MEDS: METOCLOPRAMIDE HCL 5MG/ml INJ 2ml VIAL IV SCH ×3 (05:58→22:00)
[2020-08-29 06:24] LABS: Anion Gap 7 (5-15); Carbon Dioxide 21 mmol/L (21-32)
[2020-08-29 07:20] LABS: Band Neutrophils % (manual) 13; Eosinophils % (manual) 2 (0-7); Lymphocytes % (manual) 6 (10.0-50.0); Metamyelocytes % 5; Monocytes % (manual) 3 (0-12); Myelocytes % 3
[2020-08-29] MEDS: MIDAZOLAM DRIP 50 mg/50mL 50 ML IV SCH ×2 (08:37→12:40)
[2020-08-29] MEDS: FLUCONAZOLE 200MG/100ML 100 ML IV SCH (12:17)
[2020-08-29] MEDS: FAMOTIDINE (10MG/ML) 2ML VL IV SCH (12:17)
[2020-08-29] MEDS: MEROPENEM 1GM IVPB 100 ML IV SCH ×2 (12:17→22:00)
[2020-08-29] MEDS: ASCORBIC ACID 1,000 MG TAB PO SCH (12:18)
[2020-08-29] MEDS: LINEZOLID 600MG/300ML 300 ML IV SCH ×2 (12:18→22:00)
[2020-08-29] MEDS: ZINC SULFATE 220mg CAP or TAB PO SCH (12:18)
[2020-08-29] MEDS: PANTOPRAZOLE 40 MG/10 ML VIAL INJ IV SCH (12:18)
[2020-08-29] MEDS: ASPirin 81 mg TAB PO SCH (12:18)
[2020-08-29] MEDS: CHOLECALCIFEROL (VITD3) 2,000 UNIT CAP/TAB PO SCH (12:19)
[2020-08-29] MEDS: fentaNYL Drip 2500mCg/250mlNS 250 ML IV SCH (12:36)
[2020-08-29] MEDS: NOREPINEPHRINE 8 MG/250ML KIT 250 ML IV SCH (12:45)
[2020-08-29] MEDS: PROPOFOL 100 ML IV SCH (14:53)
[2020-08-29] MEDS: DOPamine 1600MCG/ML D5W 250 ML IV SCH (15:30)
[2020-08-29] MEDS: ROCURONIUM 10MG/ML 10ML VIAL IV PRN (17:30)
[2020-08-29] MEDS: ENOXAPARIN SOD 100 MG/1 ML SYRINGE SC SCH (18:00)
[2020-08-29] MEDS: ATORVASTATIN 20 MG TAB PO SCH (22:00)
[2020-08-30] VITALS (52 sets, daily range): BP systolic 111–159; BP diastolic 48–73
[2020-08-30 02:05] LABS: Hematocrit 32.6 % (36.0-46.0); Hemoglobin 11.2 g/dL (12.2-16.2); Red Blood Cells 3.65 10^6/uL (4.0-5.20)
[2020-08-30 02:08] LABS: Mean Corpuscular Hemoglobin 30.7 pg (28.0-32.0); Mean Corpuscular Hgb Conc. 34.4 g/dL (32.0-36.0); Mean Corpuscular Volume 89.2 fL (80.0-100.0); Platelet Count (auto) 367 10^3/uL (140-450); Red Cell Distribution Width 15.8 % (11.8-14.3)
[2020-08-30 02:22] LABS: Calcium 7.7 mg/dL (8.5-10.1); White Blood Cell 33.7 10^3/uL (4.4-10.8)
[2020-08-30 02:23] LABS: Basophils % (manual) 0 (0.0-2.0); Blast Cells 0; Promyelocytes % 0; Reactive Lymphocytes 0
[2020-08-30 02:38] LABS: BUN/Creatinine Ratio 28.7
[2020-08-30 04:50] LABS: Metamyelocytes % 2
[2020-08-30 04:53] LABS: Band Neutrophils % (manual) 9; Eosinophils % (manual) 1 (0-7); Lymphocytes % (manual) 3 (10.0-50.0); Monocytes % (manual) 5 (0-12); Myelocytes % 2
[2020-08-30] MEDS: SODIUM ZIRCONIUM CYCL 10 GM PAK PO SCH ×3 (06:00→18:00)
[2020-08-30] MEDS: METOCLOPRAMIDE HCL 5MG/ml INJ 2ml VIAL IV SCH ×3 (06:00→22:04)
[2020-08-30] MEDS: SOD CHL 0.45% 1,000 ML IV SCH (06:00)
[2020-08-30] MEDS: InsuLIN REG 1unit/0.01ml Soln (100units/ml) SC SCH ×4 (06:11→23:25)
[2020-08-30] MEDS: ACCU-CHEK COMFORT CURVE STRIP VI SCH ×4 (06:12→22:04)
[2020-08-30] MEDS: INSULIN LANTUS (GLARGINE) 1 /0.01ml (100units/ml) SC SCH ×2 (06:12→23:25)
[2020-08-30] MEDS: PROPOFOL 100 ML IV SCH ×2 (07:28→11:54)
[2020-08-30] MEDS: FLUCONAZOLE 200MG/100ML 100 ML IV SCH (08:29)
[2020-08-30] MEDS: NOREPINEPHRINE 8 MG/250ML KIT 250 ML IV SCH (08:40)
[2020-08-30] MEDS: DOPamine 1600MCG/ML D5W 250 ML IV SCH (08:40)
[2020-08-30] MEDS: ASPirin 81 mg TAB PO SCH (10:00)
[2020-08-30] MEDS: CHOLECALCIFEROL (VITD3) 2,000 UNIT CAP/TAB PO SCH (10:00)
[2020-08-30] MEDS: ASCORBIC ACID 1,000 MG TAB PO SCH (10:00)
[2020-08-30] MEDS: FAMOTIDINE (10MG/ML) 2ML VL IV SCH (10:36)
[2020-08-30] MEDS: MEROPENEM 1GM IVPB 100 ML IV SCH ×2 (10:36→22:00)
[2020-08-30] MEDS: PANTOPRAZOLE 40 MG/10 ML VIAL INJ IV SCH (10:36)
[2020-08-30] MEDS: LINEZOLID 600MG/300ML 300 ML IV SCH ×2 (10:36→22:03)
[2020-08-30] MEDS: ZINC SULFATE 220mg CAP or TAB PO SCH (10:44)
[2020-08-30] MEDS ORDERED: FUROSEMIDE 100 MG/10ML VIAL IV ONE (12:15)
[2020-08-30] MEDS: fentaNYL Drip 2500mCg/250mlNS 250 ML IV SCH (13:14)
[2020-08-30] MEDS: MIDAZOLAM DRIP 50 mg/50mL 50 ML IV SCH (18:43)
[2020-08-30] MEDS: ATORVASTATIN 20 MG TAB PO SCH (22:03)
[2020-08-30] MEDS: ENOXAPARIN SOD 100 MG/1 ML SYRINGE SC SCH (22:04)
[2020-08-31] VITALS (78 sets, daily range): BP systolic 105–177; BP diastolic 41–74
[2020-08-31] MEDS: SODIUM ZIRCONIUM CYCL 10 GM PAK PO SCH
[2020-08-31] MEDS: METOCLOPRAMIDE HCL 5MG/ml INJ 2ml VIAL IV SCH ×3 (06:14→22:00)
[2020-08-31] MEDS: MEROPENEM 1GM IVPB 100 ML IV SCH ×3 (06:14→23:08)
[2020-08-31] MEDS: ACCU-CHEK COMFORT CURVE STRIP VI SCH ×4 (06:14→22:08)
[2020-08-31] MEDS: INSULIN LANTUS (GLARGINE) 1 /0.01ml (100units/ml) SC SCH ×2 (06:15→23:07)
[2020-08-31] MEDS: InsuLIN REG 1unit/0.01ml Soln (100units/ml) SC SCH ×4 (06:16→22:00)
[2020-08-31 07:30] LABS: Hematocrit 31.3 % (36.0-46.0); Hemoglobin 10.3 g/dL (12.2-16.2); Mean Corpuscular Hemoglobin 29.2 pg (28.0-32.0); Mean Corpuscular Hgb Conc. 32.8 g/dL (32.0-36.0); Platelet Count (auto) 353 10^3/uL (140-450); Red Blood Cells 3.52 10^6/uL (4.0-5.20); White Blood Cell 27.6 10^3/uL (4.4-10.8)
[2020-08-31 07:43] LABS: Potassium 4.9 mmol/L (3.5-5.1)
[2020-08-31 07:55] LABS: Basophils % (manual) 0 (0.0-2.0); Blast Cells 0; Eosinophils % (manual) 0 (0-7); Myelocytes % 0; Reactive Lymphocytes 0
[2020-08-31 07:56] LABS: Albumin 1.7 g/dL (3.4-5.0); BUN/Creatinine Ratio 31.3; Bilirubin, Total 0.4 mg/dL (0.2-1.0); Calcium 8.4 mg/dL (8.5-10.1); Magnesium 2.3 mg/dL (1.6-2.6); Phosphorus 4.2 mg/dL (2.5-4.90); Total Protein 5.6 g/dL (6.4-8.2)
[2020-08-31] MEDS: CHOLECALCIFEROL (VITD3) 2,000 UNIT CAP/TAB PO SCH (10:00)
[2020-08-31] MEDS: fentaNYL Drip 2500mCg/250mlNS 250 ML IV SCH (11:02)
[2020-08-31] MEDS: PANTOPRAZOLE 40 MG/10 ML VIAL INJ IV SCH (11:09)
[2020-08-31] MEDS: FLUCONAZOLE 200MG/100ML 100 ML IV SCH (11:09)
[2020-08-31] MEDS: LINEZOLID 600MG/300ML 300 ML IV SCH ×2 (11:09→22:06)
[2020-08-31] MEDS: FAMOTIDINE (10MG/ML) 2ML VL IV SCH ×2 (11:09→22:06)
[2020-08-31] MEDS: ASPirin 81 mg TAB PO SCH (11:09)
[2020-08-31] MEDS: ZINC SULFATE 220mg CAP or TAB PO SCH (11:10)
[2020-08-31] MEDS: ENOXAPARIN SOD 100 MG/1 ML SYRINGE SC SCH ×2 (11:10→22:08)
[2020-08-31] MEDS: ASCORBIC ACID 1,000 MG TAB PO SCH (11:10)
[2020-08-31 11:56] LABS: Band Neutrophils % (manual) 23; Lymphocytes % (manual) 7 (10.0-50.0); Metamyelocytes % 5; Monocytes % (manual) 4 (0-12); Promyelocytes % 1
[2020-08-31] MEDS: MIDAZOLAM DRIP 50 mg/50mL 50 ML IV SCH ×2 (12:02→16:11)
[2020-08-31] MEDS: NOREPINEPHRINE 8 MG/250ML KIT 250 ML IV SCH (12:45)
[2020-08-31] MEDS: PROPOFOL 100 ML IV SCH ×2 (13:08→18:30)
[2020-08-31] MEDS: DOPamine 1600MCG/ML D5W 250 ML IV SCH (15:30)
[2020-08-31] MEDS: ATORVASTATIN 20 MG TAB PO SCH (22:06)
[2020-09-01] VITALS (97 sets, daily range): BP systolic 111–164; BP diastolic 54–93
[2020-09-01] MEDS: MIDAZOLAM DRIP 50 mg/50mL 50 ML IV SCH ×2 (01:20→20:11)
[2020-09-01] MEDS: PROPOFOL 100 ML IV SCH ×2 (01:20→22:06)
[2020-09-01] MEDS: METOCLOPRAMIDE HCL 5MG/ml INJ 2ml VIAL IV SCH ×3 (06:00→21:38)
[2020-09-01] MEDS: MEROPENEM 1GM IVPB 100 ML IV SCH ×3 (06:00→21:37)
[2020-09-01] MEDS: InsuLIN REG 1unit/0.01ml Soln (100units/ml) SC SCH (07:00)
[2020-09-01] MEDS: INSULIN LANTUS (GLARGINE) 1 /0.01ml (100units/ml) SC SCH ×2 (07:00→22:00)
[2020-09-01] MEDS: ACCU-CHEK COMFORT CURVE STRIP VI SCH ×3 (07:00→22:21)
[2020-09-01] MEDS ORDERED: CHOLECALCIFEROL (VITD3) 1,000UNIT=25mCg TAB ONE (08:40)
[2020-09-01 08:51] LABS: Basophils # (auto) 0.1 10 ^3/uL (0-0.2); Basophils % (auto) 0.4 % (0.0-2.0); Eosinophils # (auto) 0.6 10 ^3/uL (0-0.8); Eosinophils % (auto) 3.5 % (0.0-7.0); Hematocrit 30.6 % (36.0-46.0); Lymphocytes % (auto) 11.7 % (10.0-50.0); Mean Corpuscular Hemoglobin 28.9 pg (28.0-32.0); Mean Corpuscular Hgb Conc. 32.6 g/dL (32.0-36.0); Mean Corpuscular Volume 88.6 fL (80.0-100.0); Monocytes % (auto) 11.4 % (0.0-12.0); Neutrophils # (auto) 12.5 10 ^3/uL (1.6-8.6); Platelet Count (auto) 320 10^3/uL (140-450); Red Blood Cells 3.45 10^6/uL (4.0-5.20); Red Cell Distribution Width 16.2 % (11.8-14.3); White Blood Cell 17.2 10^3/uL (4.4-10.8)
[2020-09-01 08:57] LABS: Albumin 1.6 g/dL (3.4-5.0); Calcium 8.5 mg/dL (8.5-10.1); Potassium 4.4 mmol/L (3.5-5.1)
[2020-09-01 09:02] LABS: BUN/Creatinine Ratio 39.8; Bilirubin, Total 0.4 mg/dL (0.2-1.0); Total Protein 5.4 g/dL (6.4-8.2)
[2020-09-01] MEDS: ENOXAPARIN SOD 100 MG/1 ML SYRINGE SC SCH ×2 (10:00→21:38)
[2020-09-01] MEDS: FAMOTIDINE (10MG/ML) 2ML VL IV SCH ×2 (10:00→21:38)
[2020-09-01] MEDS: FLUCONAZOLE 200MG/100ML 100 ML IV SCH (10:41)
[2020-09-01] MEDS ORDERED: ACCU-CHEK COMFORT CURVE STRIP VI SCH (10:45)
[2020-09-01 11:02] LABS: Magnesium 2.2 mg/dL (1.6-2.6); Phosphorus 3.3 mg/dL (2.5-4.90)
[2020-09-01 11:06] LABS: Pre Albumin 24.2 mg/dL (20.0-40.0)
[2020-09-01] MEDS: fentaNYL Drip 2500mCg/250mlNS 250 ML IV SCH ×2 (12:45→20:13)
[2020-09-01] MEDS ORDERED: TPN PER PHARMACY 0 ML IV SCH (13:45)
[2020-09-01] MEDS ORDERED: DEXTROSE (50%) 50ML SYRG IV PRN (13:45)
[2020-09-01] MEDS: D5W/SOD CHL 0.2% 1,000 ML IV SCH (14:30)
[2020-09-01] MEDS: LINEZOLID 600MG/300ML 300 ML IV SCH ×2 (15:00→21:38)
[2020-09-01] MEDS: DOPamine 1600MCG/ML D5W 250 ML IV SCH (15:30)
[2020-09-01] MEDS ORDERED: InsuLIN REG 1unit/0.01ml Soln (100units/ml) SC SCH ×2 (17:00→22:00)
[2020-09-01] MEDS: TPN PER PHARMACY IV NR ×4 (20:14)
[2020-09-01 23:45] LABS: Potassium 5.7 mmol/L (3.5-5.1)
[2020-09-02] VITALS (82 sets, daily range): BP systolic 96–147; BP diastolic 48–72
[2020-09-02] MEDS ORDERED: DEXTROSE (50%) 50ML SYRG IV SCH
[2020-09-02] MEDS: ACCU-CHEK COMFORT CURVE STRIP VI SCH ×4 (00:35→18:00)
[2020-09-02] MEDS: InsuLIN REG 1unit/0.01ml Soln (100units/ml) SC SCH ×4 (00:37→18:00)
[2020-09-02 04:35] LABS: Basophils # (auto) 0 10 ^3/uL (0-0.2); Basophils % (auto) 0.3 % (0.0-2.0); Eosinophils # (auto) 0.6 10 ^3/uL (0-0.8); Eosinophils % (auto) 3.8 % (0.0-7.0); Hematocrit 27.9 % (36.0-46.0); Hemoglobin 9.3 g/dL (12.2-16.2); Lymphocytes # (auto) 2.2 10 ^3/uL (0.4-5.4); Lymphocytes % (auto) 13.5 % (10.0-50.0); Mean Corpuscular Hemoglobin 30.3 pg (28.0-32.0); Mean Corpuscular Hgb Conc. 33.2 g/dL (32.0-36.0); Mean Corpuscular Volume 91.1 fL (80.0-100.0); Monocytes # (auto) 1.9 10 ^3/uL (0-1.3); Monocytes % (auto) 11.8 % (0.0-12.0); Neutrophils # (auto) 11.4 10 ^3/uL (1.6-8.6); Neutrophils % (auto) 70.6 % (37.0-80.0); Nucleated Red Blood Cells % 0.1 %; Platelet Count (auto) 272 10^3/uL (140-450); Red Blood Cells 3.06 10^6/uL (4.0-5.20); Red Cell Distribution Width 16.4 % (11.8-14.3); White Blood Cell 16.1 10^3/uL (4.4-10.8)
[2020-09-02 04:50] LABS: Albumin 1.4 g/dL (3.4-5.0); BUN/Creatinine Ratio 31.1; Calcium 8.1 mg/dL (8.5-10.1); Magnesium 1.7 mg/dL (1.6-2.6); Potassium 3.9 mmol/L (3.5-5.1)
[2020-09-02 04:54] LABS: Bilirubin, Total 0.3 mg/dL (0.2-1.0); Total Protein 4.7 g/dL (6.4-8.2)
[2020-09-02] MEDS: PROPOFOL 100 ML IV SCH ×2 (05:32→21:00)
[2020-09-02] MEDS: MEROPENEM 1GM IVPB 100 ML IV SCH ×3 (06:01→22:00)
[2020-09-02] MEDS: METOCLOPRAMIDE HCL 5MG/ml INJ 2ml VIAL IV SCH ×3 (06:02→22:00)
[2020-09-02] MEDS: D5W/SOD CHL 0.2% 1,000 ML IV SCH (06:06)
[2020-09-02] MEDS: INSULIN LANTUS (GLARGINE) 1 /0.01ml (100units/ml) SC SCH ×2 (06:06→22:00)
[2020-09-02] MEDS: MIDAZOLAM DRIP 50 mg/50mL 50 ML IV SCH ×3 (06:35→22:23)
[2020-09-02] MEDS ORDERED: DEXTROSE (50%) 50ML SYRG IV PRN (09:30)
[2020-09-02] MEDS: FAMOTIDINE (10MG/ML) 2ML VL IV SCH ×2 (10:00→22:00)
[2020-09-02] MEDS: ENOXAPARIN SOD 100 MG/1 ML SYRINGE SC SCH ×2 (10:00→22:00)
[2020-09-02] MEDS: FLUCONAZOLE 200MG/100ML 100 ML IV SCH (10:00)
[2020-09-02] MEDS: LINEZOLID 600MG/300ML 300 ML IV SCH ×2 (11:00→22:00)
[2020-09-02] MEDS: DOPamine 1600MCG/ML D5W 250 ML IV SCH (15:30)
[2020-09-02] MEDS: TPN PER PHARMACY IV NR ×4 (19:52)
[2020-09-02] MEDS ORDERED: TPN PER PHARMACY IV NR ×9 (20:00)
[2020-09-02] MEDS: fentaNYL Drip 2500mCg/250mlNS 250 ML IV SCH (21:21)
[2020-09-03] VITALS (101 sets, daily range): BP systolic 83–148; BP diastolic 35–76
[2020-09-03] MEDS: ACCU-CHEK COMFORT CURVE STRIP VI SCH ×5 (00:29→21:31)
[2020-09-03] MEDS: InsuLIN REG 1unit/0.01ml Soln (100units/ml) SC SCH ×5 (00:30→21:32)
[2020-09-03] MEDS: MIDAZOLAM DRIP 50 mg/50mL 50 ML IV SCH ×2 (01:54→23:30)
[2020-09-03] MEDS: PROPOFOL 100 ML IV SCH (02:00)
[2020-09-03] MEDS: D5W/SOD CHL 0.2% 1,000 ML IV SCH (03:00)
[2020-09-03 04:28] LABS: Basophils # (auto) 0 10 ^3/uL (0-0.2); Basophils % (auto) 0.2 % (0.0-2.0); Eosinophils # (auto) 0 10 ^3/uL (0-0.8); Eosinophils % (auto) 0.2 % (0.0-7.0); Hematocrit 31.4 % (36.0-46.0); Hemoglobin 10.7 g/dL (12.2-16.2); Lymphocytes # (auto) 1.4 10 ^3/uL (0.4-5.4); Lymphocytes % (auto) 14.8 % (10.0-50.0); Mean Corpuscular Hemoglobin 32.4 pg (28.0-32.0); Mean Corpuscular Hgb Conc. 34.1 g/dL (32.0-36.0); Monocytes # (auto) 0.5 10 ^3/uL (0-1.3); Monocytes % (auto) 5.5 % (0.0-12.0); Neutrophils # (auto) 7.5 10 ^3/uL (1.6-8.6); Neutrophils % (auto) 79.3 % (37.0-80.0); Nucleated Red Blood Cells % 0.6 %; Platelet Count (auto) 313 10^3/uL (140-450); Red Blood Cells 3.31 10^6/uL (4.0-5.20); Red Cell Distribution Width 13.8 % (11.8-14.3); White Blood Cell 9.4 10^3/uL (4.4-10.8)
[2020-09-03 05:02] LABS: Potassium 3.1 mmol/L (3.5-5.1)
[2020-09-03 05:07] LABS: Albumin 1.9 g/dL (3.4-5.0); BUN/Creatinine Ratio 36.5; Bilirubin, Total 0.4 mg/dL (0.2-1.0); Magnesium 2.1 mg/dL (1.6-2.6); Phosphorus 3.8 mg/dL (2.5-4.90); Total Protein 6.8 g/dL (6.4-8.2)
[2020-09-03] MEDS: METOCLOPRAMIDE HCL 5MG/ml INJ 2ml VIAL IV SCH ×3 (05:45→21:30)
[2020-09-03] MEDS: MEROPENEM 1GM IVPB 100 ML IV SCH ×3 (05:45→21:29)
[2020-09-03] MEDS: INSULIN LANTUS (GLARGINE) 1 /0.01ml (100units/ml) SC SCH ×3 (07:00→22:00)
[2020-09-03] MEDS: NOREPINEPHRINE 8 MG/250ML KIT 250 ML IV SCH (08:00)
[2020-09-03] MEDS ORDERED: NOREPINEPHRINE 8 MG/250ML KIT 250 ML IV ONE (08:32)
[2020-09-03] MEDS ORDERED: POTASSIUM CHL 20 Meq TABLET PO ONE (09:15)
[2020-09-03] MEDS ORDERED: SODIUM BICARBONATE 50ML VIAL 50 ML in SOD CHL 0.45% 1,000 ML IV ONE (09:15)
[2020-09-03] MEDS: FAMOTIDINE (10MG/ML) 2ML VL IV SCH ×2 (10:06→21:30)
[2020-09-03] MEDS: FREE WATER GT SCH ×4 (10:06→21:29)
[2020-09-03] MEDS: FLUCONAZOLE 200MG/100ML 100 ML IV SCH (10:06)
[2020-09-03] MEDS: LINEZOLID 600MG/300ML 300 ML IV SCH ×2 (10:06→21:30)
[2020-09-03] MEDS: ENOXAPARIN SOD 100 MG/1 ML SYRINGE SC SCH ×2 (10:06→21:31)
[2020-09-03] MEDS ORDERED: SODIUM BICARBONATE 8.4% INJ 50ML SYRINGE ONE (12:17)
[2020-09-03] MEDS: DOPamine 1600MCG/ML D5W 250 ML IV SCH (15:30)
[2020-09-03] MEDS: POTASSIUM CHL 20MEQ/100ML 100 ML IV SCH ×3 (18:00→23:29)
[2020-09-03] MEDS ORDERED: TPN PER PHARMACY IV NR ×10 (20:00)
[2020-09-03] MEDS: fentaNYL Drip 2500mCg/250mlNS 250 ML IV SCH (20:09)
[2020-09-04] VITALS (100 sets, daily range): BP systolic 91–151; BP diastolic 44–66
[2020-09-04] MEDS: InsuLIN REG 1unit/0.01ml Soln (100units/ml) SC SCH ×5 (01:14→21:51)
[2020-09-04] MEDS: ACCU-CHEK COMFORT CURVE STRIP VI SCH ×6 (01:20→21:59)
[2020-09-04] MEDS: DOPamine 1600MCG/ML D5W 250 ML IV SCH (01:21)
[2020-09-04] MEDS: MIDAZOLAM DRIP 50 mg/50mL 50 ML IV SCH ×4 (02:52→20:53)
[2020-09-04] MEDS: FREE WATER GT SCH ×6 (03:00→22:01)
[2020-09-04 05:26] LABS: Potassium 5.5 mmol/L (3.5-5.1)
[2020-09-04 05:42] LABS: Albumin 1.5 g/dL (3.4-5.0); BUN/Creatinine Ratio 21.5; Bilirubin, Total 0.3 mg/dL (0.2-1.0); Calcium 7.7 mg/dL (8.5-10.1); Magnesium 2.2 mg/dL (1.6-2.6); Phosphorus 5.3 mg/dL (2.5-4.90); Total Protein 5.2 g/dL (6.4-8.2)
[2020-09-04] MEDS: INSULIN LANTUS (GLARGINE) 1 /0.01ml (100units/ml) SC SCH ×2 (06:09→21:51)
[2020-09-04] MEDS: METOCLOPRAMIDE HCL 5MG/ml INJ 2ml VIAL IV SCH ×3 (06:13→21:49)
[2020-09-04] MEDS: MEROPENEM 1GM IVPB 100 ML IV SCH ×3 (06:13→21:49)
[2020-09-04] MEDS: NOREPINEPHRINE 8 MG/250ML KIT 250 ML IV SCH (08:00)
[2020-09-04] MEDS: FAMOTIDINE (10MG/ML) 2ML VL IV SCH ×2 (09:38→21:49)
[2020-09-04] MEDS: FLUCONAZOLE 200MG/100ML 100 ML IV SCH (09:38)
[2020-09-04] MEDS: ENOXAPARIN SOD 100 MG/1 ML SYRINGE SC SCH ×2 (09:39→22:06)
[2020-09-04] MEDS: LINEZOLID 600MG/300ML 300 ML IV SCH ×2 (10:00→21:49)
[2020-09-04] MEDS: SODIUM BICARBONATE 50ML VIAL 150 ML in D5W 5% 1,000 ML IV SCH (11:15)
[2020-09-04] MEDS: PROPOFOL 100 ML IV SCH (12:45)
[2020-09-04] MEDS ORDERED: DEXTROSE (50%) 50ML SYRG IV PRN (13:30)
[2020-09-04] MEDS ORDERED: ACCU-CHEK COMFORT CURVE STRIP VI SCH (14:00)
[2020-09-04] MEDS ORDERED: InsuLIN REG 1unit/0.01ml Soln (100units/ml) SC SCH (14:00)
[2020-09-04] MEDS ORDERED: SODIUM ACETATE IV NR ×9 (20:00)
[2020-09-04] MEDS ORDERED: CALCIUM GLUC IV NR ×9 (20:00)
[2020-09-04] MEDS ORDERED: [UNRECOGNIZED DRUG - OTHER] IV NR ×9 (20:00)
[2020-09-04] MEDS: fentaNYL Drip 2500mCg/250mlNS 250 ML IV SCH (21:08)
[2020-09-05] VITALS (93 sets, daily range): BP systolic 91–147; BP diastolic 43–69
[2020-09-05] MEDS: MIDAZOLAM DRIP 50 mg/50mL 50 ML IV SCH ×3 (01:22→20:32)
[2020-09-05] MEDS: InsuLIN REG 1unit/0.01ml Soln (100units/ml) SC SCH ×6 (02:00→22:00)
[2020-09-05] MEDS: FREE WATER GT SCH ×6 (02:14→22:00)
[2020-09-05] MEDS: ACCU-CHEK COMFORT CURVE STRIP VI SCH ×6 (02:28→22:00)
[2020-09-05] MEDS: SODIUM BICARBONATE 50ML VIAL 150 ML in D5W 5% 1,000 ML IV SCH ×2 (02:49→18:06)
[2020-09-05 05:57] LABS: Albumin 1.6 g/dL (3.4-5.0); BUN/Creatinine Ratio 22.6; Bilirubin, Total 0.2 mg/dL (0.2-1.0); Calcium 7.8 mg/dL (8.5-10.1); Magnesium 2.4 mg/dL (1.6-2.6); Phosphorus 6.4 mg/dL (2.5-4.90); Total Protein 5.9 g/dL (6.4-8.2)
[2020-09-05] MEDS: MEROPENEM 1GM IVPB 100 ML IV SCH ×3 (06:00→22:00)
[2020-09-05] MEDS: METOCLOPRAMIDE HCL 5MG/ml INJ 2ml VIAL IV SCH ×3 (06:29→22:00)
[2020-09-05] MEDS: INSULIN LANTUS (GLARGINE) 1 /0.01ml (100units/ml) SC SCH ×2 (06:33→22:00)
[2020-09-05 07:02] LABS: Potassium 6.1 mmol/L (3.5-5.1)
[2020-09-05] MEDS: NOREPINEPHRINE 8 MG/250ML KIT 250 ML IV SCH (08:00)
[2020-09-05] MEDS ORDERED: SODIUM ZIRCONIUM CYCL 10 GM PAK PO ONE (09:00)
[2020-09-05] MEDS: FLUCONAZOLE 200MG/100ML 100 ML IV SCH (10:00)
[2020-09-05] MEDS: LINEZOLID 600MG/300ML 300 ML IV SCH ×2 (10:00→22:00)
[2020-09-05] MEDS: ENOXAPARIN SOD 100 MG/1 ML SYRINGE SC SCH ×2 (10:00→22:00)
[2020-09-05] MEDS: FAMOTIDINE (10MG/ML) 2ML VL IV SCH ×2 (10:00→22:00)
[2020-09-05] MEDS ORDERED: CALCIUM GLUC 4.65meq/50ml D5AE 50 ML IV ONE (12:15)
[2020-09-05] MEDS ORDERED: InsuLIN REG 1unit/0.01ml Soln (100units/ml) IV ONE (12:15)
[2020-09-05] MEDS ORDERED: DEXTROSE (50%) 50ML SYRG IV ONE (12:15)
[2020-09-05] MEDS: PROPOFOL 100 ML IV SCH (12:45)
[2020-09-05] MEDS: SODIUM ZIRCONIUM CYCL 10 GM PAK PO SCH ×2 (14:00→22:00)
[2020-09-05] MEDS: DOPamine 1600MCG/ML D5W 250 ML IV SCH (15:30)
[2020-09-05] MEDS: BUMETANIDE INJECTION 12.5 MG in GIVE UN-DILUTED 0 ML IV SCH (17:49)
[2020-09-05] MEDS ORDERED: TPN PER PHARMACY IV NR ×9 (20:00)
[2020-09-06] VITALS (61 sets, daily range): BP systolic 107–166; BP diastolic 46–78
[2020-09-06] MEDS: InsuLIN REG 1unit/0.01ml Soln (100units/ml) SC SCH ×6 (02:00→22:00)
[2020-09-06] MEDS: ACCU-CHEK COMFORT CURVE STRIP VI SCH ×6 (02:00→22:15)
[2020-09-06] MEDS: FREE WATER GT SCH ×6 (02:00→22:14)
[2020-09-06] MEDS: MEROPENEM 1GM IVPB 100 ML IV SCH ×2 (05:44→13:15)
[2020-09-06] MEDS: METOCLOPRAMIDE HCL 5MG/ml INJ 2ml VIAL IV SCH ×3 (05:45→22:14)
[2020-09-06] MEDS: SODIUM ZIRCONIUM CYCL 10 GM PAK PO SCH ×3 (05:45→22:14)
[2020-09-06 06:07] LABS: Albumin 1.5 g/dL (3.4-5.0); BUN/Creatinine Ratio 23.3; Bilirubin, Total 0.3 mg/dL (0.2-1.0); Calcium 7.8 mg/dL (8.5-10.1); Magnesium 2.5 mg/dL (1.6-2.6); Total Protein 5.6 g/dL (6.4-8.2)
[2020-09-06] MEDS: INSULIN LANTUS (GLARGINE) 1 /0.01ml (100units/ml) SC SCH ×2 (06:22→22:16)
[2020-09-06] MEDS: NOREPINEPHRINE 8 MG/250ML KIT 250 ML IV SCH (08:00)
[2020-09-06] MEDS: FAMOTIDINE (10MG/ML) 2ML VL IV SCH (08:00)
[2020-09-06] MEDS: FLUCONAZOLE 200MG/100ML 100 ML IV SCH (08:00)
[2020-09-06 08:10] LABS: Hemoglobin 7.5 g/dL (12.2-16.2)
[2020-09-06 08:11] LABS: Hematocrit 22.4 % (36.0-46.0); Mean Corpuscular Hemoglobin 30.2 pg (28.0-32.0); Mean Corpuscular Hgb Conc. 33.4 g/dL (32.0-36.0); Mean Corpuscular Volume 90.5 fL (80.0-100.0); Platelet Count (auto) 170 10^3/uL (140-450); Red Blood Cells 2.48 10^6/uL (4.0-5.20); Red Cell Distribution Width 15.6 % (11.8-14.3); White Blood Cell 17.6 10^3/uL (4.4-10.8)
[2020-09-06 08:23] LABS: Basophils % (manual) 0 (0.0-2.0); Blast Cells 0; Myelocytes % 0; Promyelocytes % 0; Reactive Lymphocytes 0
[2020-09-06] MEDS: ENOXAPARIN SOD 100 MG/1 ML SYRINGE SC SCH (08:52)
[2020-09-06] MEDS: fentaNYL Drip 2500mCg/250mlNS 250 ML IV SCH (09:00)
[2020-09-06] MEDS: LINEZOLID 600MG/300ML 300 ML IV SCH ×2 (09:20→22:14)
[2020-09-06 09:24] LABS: Band Neutrophils % (manual) 5; Eosinophils % (manual) 1 (0-7); Lymphocytes % (manual) 4 (10.0-50.0); Metamyelocytes % 1; Monocytes % (manual) 12 (0-12)
[2020-09-06] MEDS: DOPamine 1600MCG/ML D5W 250 ML IV SCH (10:20)
[2020-09-06] MEDS: MIDAZOLAM DRIP 50 mg/50mL 50 ML IV SCH ×2 (10:21→16:46)
[2020-09-06] MEDS: BUMETANIDE INJECTION 12.5 MG in GIVE UN-DILUTED 0 ML IV SCH (12:15)
[2020-09-06] MEDS: SODIUM BICARBONATE 50ML VIAL 150 ML in D5W 5% 1,000 ML IV SCH (14:00)
[2020-09-06] MEDS ORDERED: TPN PER PHARMACY IV NR ×9 (20:00)
[2020-09-07] VITALS (85 sets, daily range): BP systolic 95–144; BP diastolic 40–75
[2020-09-07] MEDS: FREE WATER GT SCH ×6 (02:05→22:00)
[2020-09-07] MEDS: InsuLIN REG 1unit/0.01ml Soln (100units/ml) SC SCH ×6 (02:05→22:30)
[2020-09-07] MEDS: ACCU-CHEK COMFORT CURVE STRIP VI SCH ×6 (02:05→22:29)
[2020-09-07] MEDS: SODIUM BICARBONATE 50ML VIAL 150 ML in D5W 5% 1,000 ML IV SCH ×2 (02:30→18:57)
[2020-09-07] MEDS: ROCURONIUM 10MG/ML 10ML VIAL IV PRN (04:16)
[2020-09-07] MEDS ORDERED: ALBUTEROL SULF 2.5 MG/0.5ML(0.5%) NEB SOLN NEB ONE (05:15)
[2020-09-07 05:55] LABS: Mean Corpuscular Hgb Conc. 33.3 g/dL (32.0-36.0); White Blood Cell 16.8 10^3/uL (4.4-10.8)
[2020-09-07 05:57] LABS: Hematocrit 20.9 % (36.0-46.0); Mean Corpuscular Hemoglobin 29.6 pg (28.0-32.0); Mean Corpuscular Volume 88.9 fL (80.0-100.0); Platelet Count (auto) 158 10^3/uL (140-450); Red Blood Cells 2.35 10^6/uL (4.0-5.20); Red Cell Distribution Width 15.2 % (11.8-14.3)
[2020-09-07 06:11] LABS: Basophils % (manual) 0 (0.0-2.0); Blast Cells 0; Myelocytes % 0; Promyelocytes % 0; Reactive Lymphocytes 0
[2020-09-07 06:12] LABS: Potassium 4.1 mmol/L (3.5-5.1)
[2020-09-07] MEDS: METOCLOPRAMIDE HCL 5MG/ml INJ 2ml VIAL IV SCH ×3 (06:13→22:27)
[2020-09-07] MEDS: INSULIN LANTUS (GLARGINE) 1 /0.01ml (100units/ml) SC SCH ×2 (06:34→22:00)
[2020-09-07 06:57] LABS: Albumin 1.4 g/dL (3.4-5.0); BUN/Creatinine Ratio 26.2; Bilirubin, Total 0.2 mg/dL (0.2-1.0); Calcium 7.8 mg/dL (8.5-10.1); Magnesium 2.3 mg/dL (1.6-2.6); Total Protein 5.4 g/dL (6.4-8.2)
[2020-09-07 07:04] LABS: Band Neutrophils % (manual) 24; Eosinophils % (manual) 8 (0-7); Lymphocytes % (manual) 14 (10.0-50.0); Metamyelocytes % 2; Monocytes % (manual) 10 (0-12)
[2020-09-07] MEDS: NOREPINEPHRINE 8 MG/250ML KIT 250 ML IV SCH (08:00)
[2020-09-07] MEDS ORDERED: FAMOTIDINE (10MG/ML) 2ML VL IV SCH (10:00)
[2020-09-07] MEDS: LINEZOLID 600MG/300ML 300 ML IV SCH ×2 (11:11→22:28)
[2020-09-07] MEDS: PANTOPRAZOLE 40 MG/10 ML VIAL INJ IV SCH ×2 (11:11→22:27)
[2020-09-07] MEDS: fentaNYL Drip 2500mCg/250mlNS 250 ML IV SCH (12:45)
[2020-09-07] MEDS: FLUCONAZOLE 200MG/100ML 100 ML IV SCH (14:37)
[2020-09-07] MEDS: BUMETANIDE INJECTION 12.5 MG in GIVE UN-DILUTED 0 ML IV SCH (15:54)
[2020-09-07] MEDS: DOPamine 1600MCG/ML D5W 250 ML IV SCH (15:54)
[2020-09-07] MEDS: MEROPENEM 1GM IVPB 100 ML IV SCH ×2 (15:55)
[2020-09-07] MEDS: MIDAZOLAM DRIP 50 mg/50mL 50 ML IV SCH (18:43)
[2020-09-07] MEDS ORDERED: SODIUM BICARBONATE 8.4 % INJ 50ML VIAL IV ONE (18:48)
[2020-09-07] MEDS ORDERED: TPN PER PHARMACY IV NR ×7 (20:00)
[2020-09-07] MEDS: IPRATROPIUM BROM 0.5 MG/2.5ML INH SOL NEB SCH (22:50)
[2020-09-07] MEDS: ALBUTEROL SULF 2.5 MG/0.5ML(0.5%) NEB SOLN NEB SCH (22:50)
[2020-09-08] VITALS (75 sets, daily range): BP systolic 114–159; BP diastolic 51–71
[2020-09-08] MEDS: FREE WATER GT SCH ×6 (02:00→22:04)
[2020-09-08] MEDS: InsuLIN REG 1unit/0.01ml Soln (100units/ml) SC SCH ×6 (02:00→22:00)
[2020-09-08] MEDS: ACCU-CHEK COMFORT CURVE STRIP VI SCH ×6 (02:00→22:00)
[2020-09-08] MEDS: METOCLOPRAMIDE HCL 5MG/ml INJ 2ml VIAL IV SCH ×3 (06:00→22:00)
[2020-09-08] MEDS: INSULIN LANTUS (GLARGINE) 1 /0.01ml (100units/ml) SC SCH ×2 (06:51→22:00)
[2020-09-08] MEDS: IPRATROPIUM BROM 0.5 MG/2.5ML INH SOL NEB SCH ×2 (07:16→18:15)
[2020-09-08] MEDS: ALBUTEROL SULF 2.5 MG/0.5ML(0.5%) NEB SOLN NEB SCH ×2 (07:16→18:15)
[2020-09-08] MEDS: NOREPINEPHRINE 8 MG/250ML KIT 250 ML IV SCH (08:00)
[2020-09-08 08:27] LABS: Mean Corpuscular Hemoglobin 29.2 pg (28.0-32.0); Mean Corpuscular Volume 88.5 fL (80.0-100.0); Platelet Count (auto) 173 10^3/uL (140-450); Red Blood Cells 2.26 10^6/uL (4.0-5.20); Red Cell Distribution Width 15.2 % (11.8-14.3); White Blood Cell 20.1 10^3/uL (4.4-10.8)
[2020-09-08 08:39] LABS: Albumin 1.5 g/dL (3.4-5.0); Calcium 7.7 mg/dL (8.5-10.1); Magnesium 2.1 mg/dL (1.6-2.6); Potassium 4.1 mmol/L (3.5-5.1)
[2020-09-08 08:40] LABS: Hemoglobin 6.6 g/dL (12.2-16.2)
[2020-09-08 08:41] LABS: Basophils % (manual) 0 (0.0-2.0); Blast Cells 0; Promyelocytes % 0; Reactive Lymphocytes 0
[2020-09-08 08:45] LABS: BUN/Creatinine Ratio 28.6; Bilirubin, Total 0.2 mg/dL (0.2-1.0); Phosphorus 4.7 mg/dL (2.5-4.90); Pre Albumin 23.7 mg/dL (20.0-40.0); Total Protein 5.3 g/dL (6.4-8.2)
[2020-09-08] MEDS: LINEZOLID 600MG/300ML 300 ML IV SCH ×2 (09:15→22:00)
[2020-09-08] MEDS: FLUCONAZOLE 200MG/100ML 100 ML IV SCH (09:15)
[2020-09-08] MEDS: PANTOPRAZOLE 40 MG/10 ML VIAL INJ IV SCH ×2 (09:15→22:05)
[2020-09-08] MEDS ORDERED: LACTULOSE 20Gm/30ML SOLN PO ONE (09:30)
[2020-09-08] MEDS ORDERED: SODIUM BICARBONATE 8.4 % INJ 50ML VIAL IV ONE (09:30)
[2020-09-08] MEDS ORDERED: ALBUMIN 25% 50 ML IV ONE (10:45)
[2020-09-08] MEDS: SODIUM CHLORIDE 0.9% 1,000 ML IV SCH ×2 (11:30→22:57)
[2020-09-08] MEDS ORDERED: SODIUM FERR GLUC 62.5MG/5ML 125 MG in SODIUM CHL 0.9% 100 ML IV SCH (12:00)
[2020-09-08] MEDS: BUMETANIDE INJECTION 12.5 MG in GIVE UN-DILUTED 0 ML IV SCH (12:15)
[2020-09-08] MEDS: MEROPENEM 1GM IVPB 100 ML IV SCH ×2 (12:33)
[2020-09-08 13:42] LABS: Band Neutrophils % (manual) 9; Eosinophils % (manual) 9 (0-7); Lymphocytes % (manual) 4 (10.0-50.0); Metamyelocytes % 2; Monocytes % (manual) 9 (0-12); Myelocytes % 3
[2020-09-08] MEDS: MIDAZOLAM DRIP 50 mg/50mL 50 ML IV SCH (14:21)
[2020-09-08] MEDS: DOPamine 1600MCG/ML D5W 250 ML IV SCH (15:30)
[2020-09-08] MEDS ORDERED: BUMETANIDE 2.5mg/10ml (0.25 mg/ml) INJ IV ONE (17:00)
[2020-09-08] MEDS: fentaNYL Drip 2500mCg/250mlNS 250 ML IV SCH (18:29)
[2020-09-08] MEDS ORDERED: TPN PER PHARMACY IV NR ×8 (20:00)
[2020-09-09] VITALS (53 sets, daily range): BP systolic 134–164; BP diastolic 62–80
[2020-09-09] MEDS: MEROPENEM 1GM IVPB 100 ML IV SCH ×3 (00:12→23:04)
[2020-09-09] MEDS: FREE WATER GT SCH ×4 (01:01→14:00)
[2020-09-09] MEDS: InsuLIN REG 1unit/0.01ml Soln (100units/ml) SC SCH ×7 (01:01→22:00)
[2020-09-09] MEDS: ACCU-CHEK COMFORT CURVE STRIP VI SCH ×6 (01:02→21:21)
[2020-09-09] MEDS: METOCLOPRAMIDE HCL 5MG/ml INJ 2ml VIAL IV SCH ×3 (05:09→21:20)
[2020-09-09 05:59] LABS: Hemoglobin 7.8 g/dL (12.2-16.2); White Blood Cell 18.8 10^3/uL (4.4-10.8)
[2020-09-09 06:01] LABS: Hematocrit 23.1 % (36.0-46.0); Mean Corpuscular Hemoglobin 29.7 pg (28.0-32.0); Mean Corpuscular Hgb Conc. 33.6 g/dL (32.0-36.0); Mean Corpuscular Volume 88.5 fL (80.0-100.0); Platelet Count (auto) 168 10^3/uL (140-450); Red Blood Cells 2.62 10^6/uL (4.0-5.20); Red Cell Distribution Width 15.3 % (11.8-14.3)
[2020-09-09] MEDS: INSULIN LANTUS (GLARGINE) 1 /0.01ml (100units/ml) SC SCH ×2 (06:02→21:26)
[2020-09-09 06:12] LABS: Potassium 3.7 mmol/L (3.5-5.1)
[2020-09-09 06:15] LABS: Basophils % (manual) 0 (0.0-2.0); Blast Cells 0; Promyelocytes % 0; Reactive Lymphocytes 0
[2020-09-09] MEDS: IPRATROPIUM BROM 0.5 MG/2.5ML INH SOL NEB SCH ×2 (06:20→14:35)
[2020-09-09] MEDS: ALBUTEROL SULF 2.5 MG/0.5ML(0.5%) NEB SOLN NEB SCH ×2 (06:20→14:35)
[2020-09-09 06:24] LABS: Albumin 1.6 g/dL (3.4-5.0); BUN/Creatinine Ratio 32.9; Bilirubin, Total 0.4 mg/dL (0.2-1.0); Calcium 7.8 mg/dL (8.5-10.1); Phosphorus 3.9 mg/dL (2.5-4.90); Total Protein 5.6 g/dL (6.4-8.2)
[2020-09-09 06:34] LABS: Band Neutrophils % (manual) 14; Eosinophils % (manual) 9 (0-7)
[2020-09-09 06:35] LABS: Lymphocytes % (manual) 7 (10.0-50.0); Metamyelocytes % 1; Monocytes % (manual) 13 (0-12); Myelocytes % 1
[2020-09-09] MEDS: MIDAZOLAM DRIP 50 mg/50mL 50 ML IV SCH ×3 (07:30→20:47)
[2020-09-09] MEDS: NOREPINEPHRINE 8 MG/250ML KIT 250 ML IV SCH (08:00)
[2020-09-09] MEDS: PANTOPRAZOLE 40 MG/10 ML VIAL INJ IV SCH ×2 (10:44→21:19)
[2020-09-09] MEDS: fentaNYL Drip 2500mCg/250mlNS 250 ML IV SCH (12:45)
[2020-09-09] MEDS: LINEZOLID 600MG/300ML 300 ML IV SCH ×2 (13:56→21:20)
[2020-09-09] MEDS: DOPamine 1600MCG/ML D5W 250 ML IV SCH (15:30)
[2020-09-09] MEDS ORDERED: MAGNESIUM CITRATE SOLUTION 300 ML BTL GT ONE (18:45)
[2020-09-09] MEDS ORDERED: TPN PER PHARMACY IV NR ×10 (20:00)
[2020-09-10] VITALS (95 sets, daily range): BP systolic 115–156; BP diastolic 58–76
[2020-09-10] MEDS: MIDAZOLAM DRIP 50 mg/50mL 50 ML IV SCH ×3 (00:20→22:50)
[2020-09-10] MEDS: ACCU-CHEK COMFORT CURVE STRIP VI SCH ×6 (02:01→21:26)
[2020-09-10] MEDS: InsuLIN REG 1unit/0.01ml Soln (100units/ml) SC SCH ×5 (02:02→18:00)
[2020-09-10 05:05] LABS: Albumin 1.7 g/dL (3.4-5.0); Calcium 8.3 mg/dL (8.5-10.1); Potassium 3.5 mmol/L (3.5-5.1)
[2020-09-10 05:10] LABS: BUN/Creatinine Ratio 37.3; Bilirubin, Total 0.3 mg/dL (0.2-1.0); Phosphorus 3.6 mg/dL (2.5-4.90); Total Protein 5.8 g/dL (6.4-8.2)
[2020-09-10] MEDS: METOCLOPRAMIDE HCL 5MG/ml INJ 2ml VIAL IV SCH ×3 (05:24→21:22)
[2020-09-10 06:01] LABS: Mean Corpuscular Hemoglobin 29.8 pg (28.0-32.0); Mean Corpuscular Hgb Conc. 33.3 g/dL (32.0-36.0); Mean Corpuscular Volume 89.5 fL (80.0-100.0); Platelet Count (auto) 180 10^3/uL (140-450); Red Blood Cells 2.69 10^6/uL (4.0-5.20); Red Cell Distribution Width 15.7 % (11.8-14.3); White Blood Cell 24.2 10^3/uL (4.4-10.8)
[2020-09-10 06:05] LABS: Basophils % (manual) 0 (0.0-2.0); Blast Cells 0; Promyelocytes % 0; Reactive Lymphocytes 0
[2020-09-10] MEDS: DOPamine 1600MCG/ML D5W 250 ML IV SCH ×2 (06:43→15:30)
[2020-09-10] MEDS: fentaNYL Drip 2500mCg/250mlNS 250 ML IV SCH (06:46)
[2020-09-10] MEDS: INSULIN LANTUS (GLARGINE) 1 /0.01ml (100units/ml) SC SCH ×2 (06:47→21:25)
[2020-09-10 06:53] LABS: Band Neutrophils % (manual) 13; Eosinophils % (manual) 9 (0-7); Lymphocytes % (manual) 9 (10.0-50.0); Metamyelocytes % 2; Monocytes % (manual) 10 (0-12); Myelocytes % 2
[2020-09-10] MEDS: ALBUTEROL SULF 2.5 MG/0.5ML(0.5%) NEB SOLN NEB SCH ×3 (07:00→18:19)
[2020-09-10] MEDS: IPRATROPIUM BROM 0.5 MG/2.5ML INH SOL NEB SCH ×3 (07:00→18:19)
[2020-09-10] MEDS: NOREPINEPHRINE 8 MG/250ML KIT 250 ML IV SCH (08:00)
[2020-09-10] MEDS: PANTOPRAZOLE 40 MG/10 ML VIAL INJ IV SCH ×2 (09:12→21:21)
[2020-09-10] MEDS: LINEZOLID 600MG/300ML 300 ML IV SCH ×2 (09:12→21:22)
[2020-09-10] MEDS: BUMETANIDE INJECTION 12.5 MG in GIVE UN-DILUTED 0 ML IV SCH ×2 (09:18→12:15)
[2020-09-10] MEDS ORDERED: POTASSIUM CHL 20MEQ/100ML 100 ML IV ONE (11:00)
[2020-09-10] MEDS: MEROPENEM 1GM IVPB 100 ML IV SCH (13:27)
[2020-09-10] MEDS: TPN PER PHARMACY IV NR ×10 (20:13)
[2020-09-11] VITALS (99 sets, daily range): BP systolic 118–158; BP diastolic 61–88
[2020-09-11] MEDS: MEROPENEM 1GM IVPB 100 ML IV SCH ×2 (00:04→11:40)
[2020-09-11] MEDS: ACCU-CHEK COMFORT CURVE STRIP VI SCH ×6 (02:29→22:12)
[2020-09-11] MEDS: InsuLIN REG 1unit/0.01ml Soln (100units/ml) SC SCH ×6 (02:30→22:10)
[2020-09-11] MEDS: MIDAZOLAM DRIP 50 mg/50mL 50 ML IV SCH ×4 (02:31→22:04)
[2020-09-11] MEDS: fentaNYL Drip 2500mCg/250mlNS 250 ML IV SCH ×3 (04:58→18:00)
[2020-09-11 05:47] LABS: Potassium 3.4 mmol/L (3.5-5.1)
[2020-09-11 05:56] LABS: Albumin 1.6 g/dL (3.4-5.0); BUN/Creatinine Ratio 37.6; Bilirubin, Total 0.3 mg/dL (0.2-1.0); Magnesium 1.8 mg/dL (1.6-2.6); Phosphorus 2.9 mg/dL (2.5-4.90); Total Protein 5.7 g/dL (6.4-8.2)
[2020-09-11] MEDS: METOCLOPRAMIDE HCL 5MG/ml INJ 2ml VIAL IV SCH ×3 (06:43→22:05)
[2020-09-11] MEDS: INSULIN LANTUS (GLARGINE) 1 /0.01ml (100units/ml) SC SCH ×3 (06:45→23:00)
[2020-09-11] MEDS: IPRATROPIUM BROM 0.5 MG/2.5ML INH SOL NEB SCH ×3 (06:49→22:23)
[2020-09-11] MEDS: ALBUTEROL SULF 2.5 MG/0.5ML(0.5%) NEB SOLN NEB SCH ×3 (06:49→22:23)
[2020-09-11] MEDS: NOREPINEPHRINE 8 MG/250ML KIT 250 ML IV SCH (08:00)
[2020-09-11] MEDS: PANTOPRAZOLE 40 MG/10 ML VIAL INJ IV SCH ×2 (09:39→22:15)
[2020-09-11] MEDS: LINEZOLID 600MG/300ML 300 ML IV SCH ×2 (09:39→22:12)
[2020-09-11] MEDS ORDERED: POTASSIUM CHL 20MEQ/100ML 100 ML IV ONE (11:45)
[2020-09-11] MEDS: DOPamine 1600MCG/ML D5W 250 ML IV SCH ×2 (15:50→23:00)
[2020-09-11] MEDS: TPN PER PHARMACY IV NR ×10 (19:59)
[2020-09-11] MEDS ORDERED: TPN PER PHARMACY IV NR ×24 (20:00)
[2020-09-12] VITALS (93 sets, daily range): BP systolic 108–172; BP diastolic 9–92
[2020-09-12] MEDS: MEROPENEM 1GM IVPB 100 ML IV SCH ×3 (00:30→23:58)
[2020-09-12] MEDS: InsuLIN REG 1unit/0.01ml Soln (100units/ml) SC SCH ×6 (02:08→22:00)
[2020-09-12] MEDS: ACCU-CHEK COMFORT CURVE STRIP VI SCH ×6 (02:09→22:12)
[2020-09-12] MEDS: MIDAZOLAM DRIP 50 mg/50mL 50 ML IV SCH ×5 (02:20→22:12)
[2020-09-12] MEDS: METOCLOPRAMIDE HCL 5MG/ml INJ 2ml VIAL IV SCH ×3 (05:50→22:09)
[2020-09-12] MEDS: IPRATROPIUM BROM 0.5 MG/2.5ML INH SOL NEB SCH ×2 (06:00→18:23)
[2020-09-12] MEDS: ALBUTEROL SULF 2.5 MG/0.5ML(0.5%) NEB SOLN NEB SCH ×2 (06:00→18:23)
[2020-09-12] MEDS: INSULIN LANTUS (GLARGINE) 1 /0.01ml (100units/ml) SC SCH ×2 (07:00→22:11)
[2020-09-12] MEDS: NOREPINEPHRINE 8 MG/250ML KIT 250 ML IV SCH (08:00)
[2020-09-12] MEDS: LINEZOLID 600MG/300ML 300 ML IV SCH ×2 (08:49→22:10)
[2020-09-12 08:54] LABS: Hematocrit 21.1 % (36.0-46.0); Mean Corpuscular Hemoglobin 30.1 pg (28.0-32.0); Mean Corpuscular Hgb Conc. 33.1 g/dL (32.0-36.0); Mean Corpuscular Volume 90.8 fL (80.0-100.0); Platelet Count (auto) 140 10^3/uL (140-450); Red Blood Cells 2.32 10^6/uL (4.0-5.20); Red Cell Distribution Width 15.6 % (11.8-14.3); White Blood Cell 18.1 10^3/uL (4.4-10.8)
[2020-09-12 09:01] LABS: Basophils % (manual) 0 (0.0-2.0); Blast Cells 0; Promyelocytes % 0; Reactive Lymphocytes 0
[2020-09-12 09:05] LABS: Albumin 1.5 g/dL (3.4-5.0); BUN/Creatinine Ratio 40.9; Bilirubin, Total 0.3 mg/dL (0.2-1.0); Calcium 8.3 mg/dL (8.5-10.1); Magnesium 1.8 mg/dL (1.6-2.6); Phosphorus 3.6 mg/dL (2.5-4.90); Total Protein 5.6 g/dL (6.4-8.2)
[2020-09-12 09:51] LABS: Band Neutrophils % (manual) 4; Eosinophils % (manual) 16 (0-7); Lymphocytes % (manual) 6 (10.0-50.0); Metamyelocytes % 4; Monocytes % (manual) 9 (0-12); Myelocytes % 4
[2020-09-12] MEDS: PANTOPRAZOLE 40 MG/10 ML VIAL INJ IV SCH ×2 (10:00→22:09)
[2020-09-12] MEDS ORDERED: FUROSEMIDE 20 MG/2 ML VIAL IV SCH (10:00)
[2020-09-12 10:21] LABS: Hematocrit 20.8 % (36.0-46.0)
[2020-09-12] MEDS: fentaNYL Drip 2500mCg/250mlNS 250 ML IV SCH (17:00)
[2020-09-12] MEDS ORDERED: TPN PER PHARMACY IV NR ×10 (20:00)
[2020-09-13] VITALS (47 sets, daily range): BP systolic 95–151; BP diastolic 50–86
[2020-09-13] MEDS: InsuLIN REG 1unit/0.01ml Soln (100units/ml) SC SCH ×6 (01:40→22:00)
[2020-09-13] MEDS: ACCU-CHEK COMFORT CURVE STRIP VI SCH ×6 (02:00→22:00)
[2020-09-13] MEDS: MIDAZOLAM DRIP 50 mg/50mL 50 ML IV SCH ×5 (02:16→21:00)
[2020-09-13] MEDS: fentaNYL Drip 2500mCg/250mlNS 250 ML IV SCH (05:00)
[2020-09-13 05:13] LABS: Albumin 1.4 g/dL (3.4-5.0); BUN/Creatinine Ratio 41.9; Bilirubin, Total 0.4 mg/dL (0.2-1.0); Calcium 8.3 mg/dL (8.5-10.1); Phosphorus 4.2 mg/dL (2.5-4.90); Total Protein 5.9 g/dL (6.4-8.2)
[2020-09-13 05:14] LABS: Potassium 5.2 mmol/L (3.5-5.1)
[2020-09-13] MEDS: METOCLOPRAMIDE HCL 5MG/ml INJ 2ml VIAL IV SCH ×3 (05:35→22:00)
[2020-09-13] MEDS: ALBUTEROL SULF 2.5 MG/0.5ML(0.5%) NEB SOLN NEB SCH ×3 (06:45→18:57)
[2020-09-13] MEDS: IPRATROPIUM BROM 0.5 MG/2.5ML INH SOL NEB SCH ×3 (06:45→18:58)
[2020-09-13] MEDS: NOREPINEPHRINE 8 MG/250ML KIT 250 ML IV SCH (08:00)
[2020-09-13] MEDS: INSULIN LANTUS (GLARGINE) 1 /0.01ml (100units/ml) SC SCH ×2 (08:08→22:00)
[2020-09-13 08:20] LABS: Hemoglobin 7.1 g/dL (12.2-16.2); Mean Corpuscular Hgb Conc. 33.9 g/dL (32.0-36.0); Mean Corpuscular Volume 91.6 fL (80.0-100.0); Platelet Count (auto) 169 10^3/uL (140-450); Red Blood Cells 2.29 10^6/uL (4.0-5.20); Red Cell Distribution Width 15.5 % (11.8-14.3); White Blood Cell 18.3 10^3/uL (4.4-10.8)
[2020-09-13 08:37] LABS: Basophils % (manual) 0 (0.0-2.0); Blast Cells 0; Metamyelocytes % 0; Myelocytes % 0; Promyelocytes % 0; Reactive Lymphocytes 0
[2020-09-13 08:44] LABS: Band Neutrophils % (manual) 2; Eosinophils % (manual) 11 (0-7); Lymphocytes % (manual) 16 (10.0-50.0); Monocytes % (manual) 4 (0-12)
[2020-09-13] MEDS: SODIUM ZIRCONIUM CYCL 10 GM PAK GT SCH (09:36)
[2020-09-13] MEDS: LINEZOLID 600MG/300ML 300 ML IV SCH ×2 (09:36→22:00)
[2020-09-13] MEDS: PANTOPRAZOLE 40 MG/10 ML VIAL INJ IV SCH ×2 (10:00→22:00)
[2020-09-13] MEDS: BUMETANIDE INJECTION 12.5 MG in GIVE UN-DILUTED 0 ML IV SCH (10:30)
[2020-09-13] MEDS: DOPamine 1600MCG/ML D5W 250 ML IV SCH (15:30)
[2020-09-13] MEDS: MEROPENEM 1GM IVPB 100 ML IV SCH ×2 (15:50→23:49)
[2020-09-13] MEDS ORDERED: diphenhdrAMINE HCL 50 MG/1 ML VL IV ONE (17:00)
[2020-09-13] MEDS ORDERED: [UNRECOGNIZED DRUG - OTHER] IV NR ×11 (20:00)
[2020-09-13] MEDS ORDERED: SODIUM CHLORIDE IV NR ×11 (20:00)
[2020-09-13] MEDS ORDERED: FAT EMULSION IV NR ×11 (20:00)
[2020-09-13] MEDS ORDERED: POTASSIUM CHLORIDE IV NR ×11 (20:00)
[2020-09-13] MEDS ORDERED: CATHFLO ACTIVASE (ALTEPLASE) 2 MG VIAL IV ONE (23:30)
[2020-09-14] VITALS (98 sets, daily range): BP systolic 100–161; BP diastolic 64–87
[2020-09-14] MEDS: ACCU-CHEK COMFORT CURVE STRIP VI SCH ×6 (02:00→22:00)
[2020-09-14] MEDS: InsuLIN REG 1unit/0.01ml Soln (100units/ml) SC SCH ×6 (02:00→22:00)
[2020-09-14] MEDS: fentaNYL Drip 2500mCg/250mlNS 250 ML IV SCH (04:00)
[2020-09-14 04:05] LABS: Hemoglobin 7.5 g/dL (12.2-16.2)
[2020-09-14 04:07] LABS: Hematocrit 22.3 % (36.0-46.0); Mean Corpuscular Hemoglobin 30.8 pg (28.0-32.0); Mean Corpuscular Hgb Conc. 33.6 g/dL (32.0-36.0); Mean Corpuscular Volume 91.8 fL (80.0-100.0); Platelet Count (auto) 151 10^3/uL (140-450); Red Blood Cells 2.43 10^6/uL (4.0-5.20); Red Cell Distribution Width 15.8 % (11.8-14.3); White Blood Cell 19.9 10^3/uL (4.4-10.8)
[2020-09-14 04:34] LABS: Basophils % (manual) 0 (0.0-2.0); Blast Cells 0; Metamyelocytes % 0; Myelocytes % 0; Promyelocytes % 0; Reactive Lymphocytes 0
[2020-09-14 04:43] LABS: Albumin 1.6 g/dL (3.4-5.0); Magnesium 1.7 mg/dL (1.6-2.6); Potassium 4.4 mmol/L (3.5-5.1)
[2020-09-14 04:46] LABS: BUN/Creatinine Ratio 45.2; Bilirubin, Total 0.4 mg/dL (0.2-1.0); Phosphorus 4.8 mg/dL (2.5-4.90); Total Protein 6.3 g/dL (6.4-8.2)
[2020-09-14 05:50] LABS: Calcium 8.5 mg/dL (8.5-10.1)
[2020-09-14] MEDS: METOCLOPRAMIDE HCL 5MG/ml INJ 2ml VIAL IV SCH ×3 (06:00→22:00)
[2020-09-14] MEDS: IPRATROPIUM BROM 0.5 MG/2.5ML INH SOL NEB SCH ×3 (06:23→22:10)
[2020-09-14] MEDS: ALBUTEROL SULF 2.5 MG/0.5ML(0.5%) NEB SOLN NEB SCH ×3 (06:23→22:10)
[2020-09-14] MEDS: INSULIN LANTUS (GLARGINE) 1 /0.01ml (100units/ml) SC SCH ×2 (07:00→22:00)
[2020-09-14 08:00] LABS: Band Neutrophils % (manual) 2; Eosinophils % (manual) 18 (0-7); Lymphocytes % (manual) 16 (10.0-50.0); Monocytes % (manual) 12 (0-12)
[2020-09-14] MEDS: NOREPINEPHRINE 8 MG/250ML KIT 250 ML IV SCH (08:00)
[2020-09-14] MEDS: BUMETANIDE INJECTION 12.5 MG in GIVE UN-DILUTED 0 ML IV SCH (09:00)
[2020-09-14] MEDS: SODIUM ZIRCONIUM CYCL 10 GM PAK GT SCH (09:49)
[2020-09-14] MEDS: LINEZOLID 600MG/300ML 300 ML IV SCH ×2 (09:52→22:00)
[2020-09-14] MEDS: PANTOPRAZOLE 40 MG/10 ML VIAL INJ IV SCH ×2 (09:52→22:00)
[2020-09-14] MEDS: MEROPENEM 1GM IVPB 100 ML IV SCH (11:42)
[2020-09-14] MEDS: DOPamine 1600MCG/ML D5W 250 ML IV SCH (15:30)
[2020-09-14] MEDS ORDERED: FAT EMULSION IV NR ×8 (20:00)
[2020-09-14] MEDS ORDERED: [UNRECOGNIZED DRUG - OTHER] IV NR ×8 (20:00)
[2020-09-14] MEDS ORDERED: MAGNESIUM SULF IV NR ×8 (20:00)
[2020-09-14] MEDS ORDERED: SODIUM CHLORIDE IV NR ×8 (20:00)
[2020-09-15] VITALS (97 sets, daily range): BP systolic 84–144; BP diastolic 54–86
[2020-09-15] MEDS: MEROPENEM 1GM IVPB 100 ML IV SCH ×3 (00:14→18:40)
[2020-09-15] MEDS: InsuLIN REG 1unit/0.01ml Soln (100units/ml) SC SCH ×5 (02:00→20:00)
[2020-09-15] MEDS: ACCU-CHEK COMFORT CURVE STRIP VI SCH ×5 (02:00→20:00)
[2020-09-15 04:23] LABS: Mean Corpuscular Hemoglobin 30.4 pg (28.0-32.0); Mean Corpuscular Hgb Conc. 33.3 g/dL (32.0-36.0)
[2020-09-15 04:25] LABS: Hematocrit 21.1 % (36.0-46.0); Mean Corpuscular Volume 91.5 fL (80.0-100.0); Platelet Count (auto) 142 10^3/uL (140-450); Red Blood Cells 2.31 10^6/uL (4.0-5.20); Red Cell Distribution Width 15.9 % (11.8-14.3); White Blood Cell 18.3 10^3/uL (4.4-10.8)
[2020-09-15 04:45] LABS: Albumin 1.5 g/dL (3.4-5.0); Calcium 8.3 mg/dL (8.5-10.1); Magnesium 1.7 mg/dL (1.6-2.6); Potassium 3.7 mmol/L (3.5-5.1)
[2020-09-15 04:58] LABS: BUN/Creatinine Ratio 47.9; Bilirubin, Total 0.5 mg/dL (0.2-1.0); Phosphorus 4.2 mg/dL (2.5-4.90); Total Protein 6.1 g/dL (6.4-8.2)
[2020-09-15] MEDS: METOCLOPRAMIDE HCL 5MG/ml INJ 2ml VIAL IV SCH ×3 (05:17→22:00)
[2020-09-15] MEDS: MIDAZOLAM DRIP 50 mg/50mL 50 ML IV SCH ×5 (05:30→23:05)
[2020-09-15] MEDS: fentaNYL Drip 2500mCg/250mlNS 250 ML IV SCH ×2 (05:30→18:41)
[2020-09-15] MEDS: IPRATROPIUM BROM 0.5 MG/2.5ML INH SOL NEB SCH ×2 (06:00→22:13)
[2020-09-15] MEDS: ALBUTEROL SULF 2.5 MG/0.5ML(0.5%) NEB SOLN NEB SCH ×2 (06:00→22:13)
[2020-09-15 06:29] LABS: Basophils % (manual) 0 (0.0-2.0); Blast Cells 0; Myelocytes % 0; Reactive Lymphocytes 0
[2020-09-15] MEDS: INSULIN LANTUS (GLARGINE) 1 /0.01ml (100units/ml) SC SCH ×2 (06:53→22:00)
[2020-09-15 07:51] LABS: Band Neutrophils % (manual) 3; Eosinophils % (manual) 23 (0-7); Lymphocytes % (manual) 8 (10.0-50.0); Metamyelocytes % 1; Monocytes % (manual) 7 (0-12); Promyelocytes % 1
[2020-09-15] MEDS: DOPamine 1600MCG/ML D5W 250 ML IV SCH (07:51)
[2020-09-15] MEDS: NOREPINEPHRINE 8 MG/250ML KIT 250 ML IV SCH (08:00)
[2020-09-15] MEDS ORDERED: InsuLIN REG 1unit/0.01ml Soln (100units/ml) SC SCH ×2 (08:00→12:00)
[2020-09-15] MEDS: BUMETANIDE INJECTION 12.5 MG in GIVE UN-DILUTED 0 ML IV SCH (08:34)
[2020-09-15] MEDS: SODIUM ZIRCONIUM CYCL 10 GM PAK GT SCH (08:34)
[2020-09-15] MEDS: PANTOPRAZOLE 40 MG/10 ML VIAL INJ IV SCH ×2 (08:35→22:00)
[2020-09-15] MEDS: LINEZOLID 600MG/300ML 300 ML IV SCH ×2 (09:17→22:00)
[2020-09-15] MEDS ORDERED: DEXTROSE (50%) 50ML SYRG IV PRN (10:15)
[2020-09-15] MEDS ORDERED: MAGNESIUM SULFATE 1GM/100ML 100 ML IV ONE (11:30)
[2020-09-15] MEDS ORDERED: ACCU-CHEK COMFORT CURVE STRIP VI SCH (12:00)
[2020-09-15] MEDS ORDERED: TPN PER PHARMACY IV NR ×17 (20:00)
[2020-09-16] VITALS (101 sets, daily range): BP systolic 85–135; BP diastolic 51–78
[2020-09-16] MEDS: MIDAZOLAM DRIP 50 mg/50mL 50 ML IV SCH ×4 (00:06→18:33)
[2020-09-16] MEDS ORDERED: ALBUTEROL SULF 2.5 MG/0.5ML(0.5%) NEB SOLN NEB ONE (02:47)
[2020-09-16] MEDS ORDERED: IPRATROPIUM BROM 0.5 MG/2.5ML INH SOL NEB ONE (02:47)
[2020-09-16] MEDS: MEROPENEM 1GM IVPB 100 ML IV SCH ×3 (03:00→18:33)
[2020-09-16] MEDS: InsuLIN REG 1unit/0.01ml Soln (100units/ml) SC SCH ×8 (04:21→23:38)
[2020-09-16] MEDS: ACCU-CHEK COMFORT CURVE STRIP VI SCH ×7 (04:21→23:38)
[2020-09-16 05:09] LABS: Red Cell Distribution Width 15.7 % (11.8-14.3)
[2020-09-16 05:12] LABS: Hematocrit 19.6 % (36.0-46.0); Mean Corpuscular Hemoglobin 31.4 pg (28.0-32.0); Mean Corpuscular Hgb Conc. 34.1 g/dL (32.0-36.0); Mean Corpuscular Volume 91.9 fL (80.0-100.0); Platelet Count (auto) 135 10^3/uL (140-450); Red Blood Cells 2.14 10^6/uL (4.0-5.20); White Blood Cell 17.7 10^3/uL (4.4-10.8)
[2020-09-16 05:27] LABS: Hemoglobin 6.7 g/dL (12.2-16.2)
[2020-09-16 05:29] LABS: Basophils % (manual) 0 (0.0-2.0); Blast Cells 0; Metamyelocytes % 0; Promyelocytes % 0; Reactive Lymphocytes 0
[2020-09-16 05:34] LABS: Albumin 1.4 g/dL (3.4-5.0); Calcium 8.2 mg/dL (8.5-10.1); Potassium 3.8 mmol/L (3.5-5.1)
[2020-09-16 05:39] LABS: BUN/Creatinine Ratio 47.6; Bilirubin, Total 0.4 mg/dL (0.2-1.0); Phosphorus 3.9 mg/dL (2.5-4.90); Pre Albumin 18.7 mg/dL (20.0-40.0)
[2020-09-16] MEDS: METOCLOPRAMIDE HCL 5MG/ml INJ 2ml VIAL IV SCH ×3 (05:41→21:43)
[2020-09-16] MEDS: INSULIN LANTUS (GLARGINE) 1 /0.01ml (100units/ml) SC SCH ×2 (05:58→21:48)
[2020-09-16] MEDS: IPRATROPIUM BROM 0.5 MG/2.5ML INH SOL NEB SCH ×5 (06:27→22:24)
[2020-09-16] MEDS: ALBUTEROL SULF 2.5 MG/0.5ML(0.5%) NEB SOLN NEB SCH ×5 (06:27→22:25)
[2020-09-16 06:30] LABS: Band Neutrophils % (manual) 34; Eosinophils % (manual) 6 (0-7); Lymphocytes % (manual) 8 (10.0-50.0); Monocytes % (manual) 8 (0-12); Myelocytes % 1
[2020-09-16] MEDS: NOREPINEPHRINE 8 MG/250ML KIT 250 ML IV SCH (08:00)
[2020-09-16] MEDS: BUMETANIDE INJECTION 12.5 MG in GIVE UN-DILUTED 0 ML IV SCH (09:29)
[2020-09-16] MEDS: LINEZOLID 600MG/300ML 300 ML IV SCH ×2 (10:00→21:44)
[2020-09-16] MEDS: PANTOPRAZOLE 40 MG/10 ML VIAL INJ IV SCH ×2 (10:00→21:43)
[2020-09-16] MEDS: fentaNYL Drip 2500mCg/250mlNS 250 ML IV SCH (10:31)
[2020-09-16] MEDS: DOPamine 1600MCG/ML D5W 250 ML IV SCH (15:30)
[2020-09-16] MEDS: TPN PER PHARMACY IV NR ×10 (20:05)
[2020-09-17] VITALS (97 sets, daily range): BP systolic 89–132; BP diastolic 45–77
[2020-09-17] MEDS: ALBUTEROL SULF 2.5 MG/0.5ML(0.5%) NEB SOLN NEB SCH ×6 (02:06→22:30)
[2020-09-17] MEDS: IPRATROPIUM BROM 0.5 MG/2.5ML INH SOL NEB SCH ×6 (02:06→22:30)
[2020-09-17] MEDS: MEROPENEM 1GM IVPB 100 ML IV SCH ×3 (02:08→18:40)
[2020-09-17] MEDS: InsuLIN REG 1unit/0.01ml Soln (100units/ml) SC SCH ×6 (03:27→23:59)
[2020-09-17] MEDS: ACCU-CHEK COMFORT CURVE STRIP VI SCH ×6 (03:31→23:59)
[2020-09-17 04:16] LABS: Hematocrit 21.8 % (36.0-46.0); Hemoglobin 7.3 g/dL (12.2-16.2); Mean Corpuscular Hemoglobin 31.5 pg (28.0-32.0); Mean Corpuscular Hgb Conc. 33.7 g/dL (32.0-36.0); Mean Corpuscular Volume 93.4 fL (80.0-100.0); Platelet Count (auto) 133 10^3/uL (140-450); Red Blood Cells 2.33 10^6/uL (4.0-5.20); Red Cell Distribution Width 16.2 % (11.8-14.3); White Blood Cell 15.1 10^3/uL (4.4-10.8)
[2020-09-17 04:26] LABS: Basophils % (manual) 0 (0.0-2.0); Blast Cells 0; Promyelocytes % 0; Reactive Lymphocytes 0
[2020-09-17 04:41] LABS: Albumin 1.4 g/dL (3.4-5.0); Calcium 7.7 mg/dL (8.5-10.1); Magnesium 2.1 mg/dL (1.6-2.6); Potassium 3.8 mmol/L (3.5-5.1)
[2020-09-17 04:46] LABS: BUN/Creatinine Ratio 47.1; Bilirubin, Total 0.6 mg/dL (0.2-1.0); Phosphorus 3.5 mg/dL (2.5-4.90)
[2020-09-17 05:13] LABS: Band Neutrophils % (manual) 38; Eosinophils % (manual) 9 (0-7); Lymphocytes % (manual) 8 (10.0-50.0); Metamyelocytes % 2; Monocytes % (manual) 5 (0-12); Myelocytes % 1
[2020-09-17] MEDS: METOCLOPRAMIDE HCL 5MG/ml INJ 2ml VIAL IV SCH ×3 (05:31→21:18)
[2020-09-17] MEDS: INSULIN LANTUS (GLARGINE) 1 /0.01ml (100units/ml) SC SCH ×2 (06:18→21:21)
[2020-09-17] MEDS: PANTOPRAZOLE 40 MG/10 ML VIAL INJ IV SCH ×2 (08:10→21:18)
[2020-09-17] MEDS: LINEZOLID 600MG/300ML 300 ML IV SCH ×2 (08:10→21:18)
[2020-09-17] MEDS: fentaNYL Drip 2500mCg/250mlNS 250 ML IV SCH (12:43)
[2020-09-17] MEDS: NOREPINEPHRINE 8 MG/250ML KIT 250 ML IV SCH (13:00)
[2020-09-17] MEDS ORDERED: MAGNESIUM CITRATE SOLUTION 300 ML BTL PO ONE (14:30)
[2020-09-17] MEDS: BUMETANIDE INJECTION 12.5 MG in GIVE UN-DILUTED 0 ML IV SCH (15:00)
[2020-09-17] MEDS: DOPamine 1600MCG/ML D5W 250 ML IV SCH (15:30)
[2020-09-17] MEDS: MIDAZOLAM DRIP 50 mg/50mL 50 ML IV SCH (18:40)
[2020-09-17] MEDS: TPN PER PHARMACY IV NR ×19 (19:34→19:35)
[2020-09-18] VITALS (101 sets, daily range): BP systolic 89–115; BP diastolic 40–71
[2020-09-18] MEDS: ALBUTEROL SULF 2.5 MG/0.5ML(0.5%) NEB SOLN NEB SCH ×3 (02:13→12:34)
[2020-09-18] MEDS: IPRATROPIUM BROM 0.5 MG/2.5ML INH SOL NEB SCH ×3 (02:13→12:34)
[2020-09-18] MEDS: MEROPENEM 1GM IVPB 100 ML IV SCH ×3 (02:23→21:00)
[2020-09-18] MEDS: ACCU-CHEK COMFORT CURVE STRIP VI SCH ×5 (03:37→20:00)
[2020-09-18] MEDS: InsuLIN REG 1unit/0.01ml Soln (100units/ml) SC SCH ×5 (03:37→20:00)
[2020-09-18 04:54] LABS: Basophils # (auto) 0 10 ^3/uL (0-0.2); Lymphocytes # (auto) 1.4 10 ^3/uL (0.4-5.4); Lymphocytes % (auto) 9.3 % (10.0-50.0); Monocytes # (auto) 2.2 10 ^3/uL (0-1.3); White Blood Cell 14.6 10^3/uL (4.4-10.8)
[2020-09-18 04:56] LABS: Basophils % (auto) 0.3 % (0.0-2.0); Eosinophils # (auto) 1.4 10 ^3/uL (0-0.8); Eosinophils % (auto) 9.3 % (0.0-7.0); Mean Corpuscular Hemoglobin 30.9 pg (28.0-32.0); Mean Corpuscular Hgb Conc. 33.2 g/dL (32.0-36.0); Mean Corpuscular Volume 93.1 fL (80.0-100.0); Monocytes % (auto) 14.9 % (0.0-12.0); Neutrophils # (auto) 9.6 10 ^3/uL (1.6-8.6); Neutrophils % (auto) 66.2 % (37.0-80.0); Platelet Count (auto) 146 10^3/uL (140-450); Red Blood Cells 2.25 10^6/uL (4.0-5.20); Red Cell Distribution Width 16.7 % (11.8-14.3)
[2020-09-18 05:17] LABS: Potassium 4.1 mmol/L (3.5-5.1)
[2020-09-18 05:27] LABS: Albumin 1.3 g/dL (3.4-5.0); BUN/Creatinine Ratio 58.3; Bilirubin, Total 0.6 mg/dL (0.2-1.0); Calcium 7.9 mg/dL (8.5-10.1); Magnesium 2.4 mg/dL (1.6-2.6); Phosphorus 4.2 mg/dL (2.5-4.90); Total Protein 6.1 g/dL (6.4-8.2)
[2020-09-18] MEDS: METOCLOPRAMIDE HCL 5MG/ml INJ 2ml VIAL IV SCH ×3 (05:36→22:00)
[2020-09-18] MEDS: INSULIN LANTUS (GLARGINE) 1 /0.01ml (100units/ml) SC SCH ×2 (06:06→22:00)
[2020-09-18] MEDS: NOREPINEPHRINE 8 MG/250ML KIT 250 ML IV SCH (08:00)
[2020-09-18] MEDS: LINEZOLID 600MG/300ML 300 ML IV SCH ×2 (10:17→22:00)
[2020-09-18] MEDS: PANTOPRAZOLE 40 MG/10 ML VIAL INJ IV SCH ×2 (10:17→22:00)
[2020-09-18] MEDS: MIDAZOLAM DRIP 50 mg/50mL 50 ML IV SCH ×2 (11:00→15:45)
[2020-09-18] MEDS: fentaNYL Drip 2500mCg/250mlNS 250 ML IV SCH (15:45)
[2020-09-18] MEDS: BUMETANIDE INJECTION 12.5 MG in GIVE UN-DILUTED 0 ML IV SCH (18:25)
[2020-09-18] MEDS: TPN PER PHARMACY IV NR ×18 (19:56→21:00)
[2020-09-18] MEDS: DOPamine 1600MCG/ML D5W 250 ML IV SCH (20:00)
[2020-09-19] VITALS (97 sets, daily range): BP systolic 90–114; BP diastolic 56–71
[2020-09-19] MEDS: ACCU-CHEK COMFORT CURVE STRIP VI SCH ×5 (00:03→18:06)
[2020-09-19] MEDS: InsuLIN REG 1unit/0.01ml Soln (100units/ml) SC SCH ×6 (00:04→22:28)
[2020-09-19] MEDS: MEROPENEM 1GM IVPB 100 ML IV SCH ×3 (03:00→19:00)
[2020-09-19] MEDS: METOCLOPRAMIDE HCL 5MG/ml INJ 2ml VIAL IV SCH ×3 (05:24→22:27)
[2020-09-19 05:47] LABS: Basophils # (auto) 0 10 ^3/uL (0-0.2); Basophils % (auto) 0.2 % (0.0-2.0); Eosinophils # (auto) 1.1 10 ^3/uL (0-0.8); Eosinophils % (auto) 8.2 % (0.0-7.0); Hematocrit 24.9 % (36.0-46.0); Hemoglobin 8.3 g/dL (12.2-16.2); Lymphocytes # (auto) 0.8 10 ^3/uL (0.4-5.4); Lymphocytes % (auto) 5.8 % (10.0-50.0); Mean Corpuscular Hemoglobin 31.3 pg (28.0-32.0); Mean Corpuscular Hgb Conc. 33.4 g/dL (32.0-36.0); Mean Corpuscular Volume 93.8 fL (80.0-100.0); Monocytes # (auto) 2.1 10 ^3/uL (0-1.3); Monocytes % (auto) 15.5 % (0.0-12.0); Neutrophils # (auto) 9.6 10 ^3/uL (1.6-8.6); Neutrophils % (auto) 70.3 % (37.0-80.0); Nucleated Red Blood Cells % 0.3 %; Platelet Count (auto) 155 10^3/uL (140-450); Red Blood Cells 2.65 10^6/uL (4.0-5.20); Red Cell Distribution Width 16.5 % (11.8-14.3); White Blood Cell 13.7 10^3/uL (4.4-10.8)
[2020-09-19] MEDS: INSULIN LANTUS (GLARGINE) 1 /0.01ml (100units/ml) SC SCH ×2 (05:58→22:28)
[2020-09-19] MEDS: MIDAZOLAM DRIP 50 mg/50mL 50 ML IV SCH ×4 (06:07→18:28)
[2020-09-19 06:10] LABS: Albumin 1.4 g/dL (3.4-5.0); Calcium 8.4 mg/dL (8.5-10.1); Magnesium 2.3 mg/dL (1.6-2.6); Potassium 4.1 mmol/L (3.5-5.1)
[2020-09-19 06:15] LABS: BUN/Creatinine Ratio 63.6; Bilirubin, Total 0.5 mg/dL (0.2-1.0); Phosphorus 4.2 mg/dL (2.5-4.90); Total Protein 6.4 g/dL (6.4-8.2)
[2020-09-19] MEDS: NOREPINEPHRINE 8 MG/250ML KIT 250 ML IV SCH (08:00)
[2020-09-19] MEDS: LINEZOLID 600MG/300ML 300 ML IV SCH ×2 (10:00→22:27)
[2020-09-19] MEDS: BUMETANIDE INJECTION 12.5 MG in GIVE UN-DILUTED 0 ML IV SCH ×2 (10:09→21:18)
[2020-09-19] MEDS: PANTOPRAZOLE 40 MG/10 ML VIAL INJ IV SCH ×2 (10:11→22:27)
[2020-09-19] MEDS ORDERED: LINEZOLID 600MG/300ML 300 ML IV ONE (11:45)
[2020-09-19] MEDS ORDERED: DEXTROSE (50%) 50ML SYRG IV PRN (12:00)
[2020-09-19] MEDS: fentaNYL Drip 2500mCg/250mlNS 250 ML IV SCH (13:00)
[2020-09-19] MEDS: TPN PER PHARMACY IV NR ×17 (20:12→20:13)
[2020-09-19] MEDS: DOPamine 1600MCG/ML D5W 250 ML IV SCH (21:00)
[2020-09-20] VITALS (102 sets, daily range): BP systolic 89–130; BP diastolic 54–76
[2020-09-20] MEDS: MIDAZOLAM DRIP 50 mg/50mL 50 ML IV SCH ×4 (00:31→18:45)
[2020-09-20] MEDS: fentaNYL Drip 2500mCg/250mlNS 250 ML IV SCH ×2 (01:42→13:40)
[2020-09-20] MEDS: MEROPENEM 1GM IVPB 100 ML IV SCH ×3 (03:06→18:01)
[2020-09-20 05:23] LABS: Basophils # (auto) 0 10 ^3/uL (0-0.2); Basophils % (auto) 0.3 % (0.0-2.0); Eosinophils % (auto) 7.9 % (0.0-7.0); Hematocrit 25.8 % (36.0-46.0); Hemoglobin 8.6 g/dL (12.2-16.2); Lymphocytes % (auto) 7.4 % (10.0-50.0); Mean Corpuscular Hemoglobin 31.1 pg (28.0-32.0); Mean Corpuscular Hgb Conc. 33.3 g/dL (32.0-36.0); Mean Corpuscular Volume 93.3 fL (80.0-100.0); Monocytes # (auto) 2.1 10 ^3/uL (0-1.3); Monocytes % (auto) 16.6 % (0.0-12.0); Neutrophils # (auto) 8.7 10 ^3/uL (1.6-8.6); Neutrophils % (auto) 67.8 % (37.0-80.0); Nucleated Red Blood Cells % 0.7 %; Platelet Count (auto) 192 10^3/uL (140-450); Red Blood Cells 2.76 10^6/uL (4.0-5.20); Red Cell Distribution Width 16.7 % (11.8-14.3); White Blood Cell 12.9 10^3/uL (4.4-10.8)
[2020-09-20 05:38] LABS: Potassium 3.8 mmol/L (3.5-5.1)
[2020-09-20] MEDS: ACCU-CHEK COMFORT CURVE STRIP VI SCH ×4 (05:49→17:08)
[2020-09-20] MEDS: METOCLOPRAMIDE HCL 5MG/ml INJ 2ml VIAL IV SCH ×3 (06:00→21:58)
[2020-09-20] MEDS: InsuLIN REG 1unit/0.01ml Soln (100units/ml) SC SCH ×4 (06:00→17:08)
[2020-09-20 06:36] LABS: Albumin 1.3 g/dL (3.4-5.0); BUN/Creatinine Ratio 70.5; Bilirubin, Total 0.4 mg/dL (0.2-1.0); Calcium 8.4 mg/dL (8.5-10.1); Magnesium 1.9 mg/dL (1.6-2.6); Total Protein 6.3 g/dL (6.4-8.2)
[2020-09-20] MEDS: INSULIN LANTUS (GLARGINE) 1 /0.01ml (100units/ml) SC SCH ×2 (06:49→21:58)
[2020-09-20] MEDS: NOREPINEPHRINE 8 MG/250ML KIT 250 ML IV SCH (08:00)
[2020-09-20] MEDS: LINEZOLID 600MG/300ML 300 ML IV SCH (09:13)
[2020-09-20] MEDS: PANTOPRAZOLE 40 MG/10 ML VIAL INJ IV SCH ×2 (09:13→21:58)
[2020-09-20] MEDS: DOPamine 1600MCG/ML D5W 250 ML IV SCH (16:00)
[2020-09-20] MEDS: TPN PER PHARMACY IV NR ×8 (19:50)
[2020-09-20] MEDS ORDERED: TPN PER PHARMACY IV NR ×11 (20:00)
[2020-09-21] VITALS (98 sets, daily range): BP systolic 88–126; BP diastolic 54–80
[2020-09-21] MEDS: MIDAZOLAM DRIP 50 mg/50mL 50 ML IV SCH ×4 (00:53→18:30)
[2020-09-21] MEDS: BUMETANIDE INJECTION 12.5 MG in GIVE UN-DILUTED 0 ML IV SCH (01:52)
[2020-09-21] MEDS: fentaNYL Drip 2500mCg/250mlNS 250 ML IV SCH ×2 (02:11→13:08)
[2020-09-21] MEDS: MEROPENEM 1GM IVPB 100 ML IV SCH ×3 (03:13→18:09)
[2020-09-21] MEDS: ACCU-CHEK COMFORT CURVE STRIP VI SCH ×4 (06:00→17:19)
[2020-09-21] MEDS: METOCLOPRAMIDE HCL 5MG/ml INJ 2ml VIAL IV SCH ×3 (06:00→21:32)
[2020-09-21] MEDS: InsuLIN REG 1unit/0.01ml Soln (100units/ml) SC SCH ×4 (06:00→17:19)
[2020-09-21] MEDS: INSULIN LANTUS (GLARGINE) 1 /0.01ml (100units/ml) SC SCH ×2 (06:32→22:00)
[2020-09-21 07:09] LABS: Calcium 8.6 mg/dL (8.5-10.1); Potassium 3.9 mmol/L (3.5-5.1)
[2020-09-21 07:17] LABS: Albumin 1.2 g/dL (3.4-5.0); BUN/Creatinine Ratio 83.5; Bilirubin, Total 0.4 mg/dL (0.2-1.0); Magnesium 1.8 mg/dL (1.6-2.6); Phosphorus 2.8 mg/dL (2.5-4.90); Pre Albumin 16.3 mg/dL (20.0-40.0); Total Protein 6.1 g/dL (6.4-8.2)
[2020-09-21] MEDS: NOREPINEPHRINE 8 MG/250ML KIT 250 ML IV SCH (08:00)
[2020-09-21] MEDS: PANTOPRAZOLE 40 MG/10 ML VIAL INJ IV SCH ×2 (09:19→21:32)
[2020-09-21] MEDS: DOPamine 1600MCG/ML D5W 250 ML IV SCH (13:07)
[2020-09-21] MEDS ORDERED: TPN PER PHARMACY IV NR ×9 (20:00)
[2020-09-22] VITALS (106 sets, daily range): BP systolic 94–142; BP diastolic 59–80
[2020-09-22] MEDS: ACCU-CHEK COMFORT CURVE STRIP VI SCH ×4 (00:16→17:21)
[2020-09-22] MEDS: MIDAZOLAM DRIP 50 mg/50mL 50 ML IV SCH ×7 (00:43→22:58)
[2020-09-22] MEDS: fentaNYL Drip 2500mCg/250mlNS 250 ML IV SCH ×2 (01:43→14:45)
[2020-09-22] MEDS: MEROPENEM 1GM IVPB 100 ML IV SCH ×3 (03:09→19:00)
[2020-09-22] MEDS: BUMETANIDE INJECTION 12.5 MG in GIVE UN-DILUTED 0 ML IV SCH (03:22)
[2020-09-22] MEDS: InsuLIN REG 1unit/0.01ml Soln (100units/ml) SC SCH ×4 (06:00→17:21)
[2020-09-22] MEDS: METOCLOPRAMIDE HCL 5MG/ml INJ 2ml VIAL IV SCH ×4 (06:16→21:47)
[2020-09-22] MEDS: INSULIN LANTUS (GLARGINE) 1 /0.01ml (100units/ml) SC SCH ×2 (06:16→21:48)
[2020-09-22 06:36] LABS: Potassium 4.4 mmol/L (3.5-5.1)
[2020-09-22 06:51] LABS: Albumin 1.2 g/dL (3.4-5.0); BUN/Creatinine Ratio 92.6; Bilirubin, Total 0.5 mg/dL (0.2-1.0); Calcium 8.3 mg/dL (8.5-10.1); Magnesium 1.4 mg/dL (1.6-2.6); Phosphorus 3.8 mg/dL (2.5-4.90); Total Protein 6.2 g/dL (6.4-8.2)
[2020-09-22] MEDS: MAGNESIUM SULFATE 1GM/100ML 100 ML IV SCH ×3 (10:17→14:30)
[2020-09-22] MEDS: PANTOPRAZOLE 40 MG/10 ML VIAL INJ IV SCH ×2 (10:17→21:47)
[2020-09-22] MEDS: DOPamine 1600MCG/ML D5W 250 ML IV SCH (10:18)
[2020-09-22] MEDS ORDERED: TPN PER PHARMACY IV NR ×8 (20:00)
[2020-09-23] VITALS (104 sets, daily range): BP systolic 98–143; BP diastolic 50–83
[2020-09-23] MEDS: MEROPENEM 1GM IVPB 100 ML IV SCH ×3 (03:00→18:17)
[2020-09-23] MEDS ORDERED: BUMETANIDE INJECTION 50 ML ONE (03:15)
[2020-09-23] MEDS: BUMETANIDE INJECTION 12.5 MG in GIVE UN-DILUTED 0 ML IV SCH (03:30)
[2020-09-23] MEDS: fentaNYL Drip 2500mCg/250mlNS 250 ML IV SCH ×2 (03:55→18:19)
[2020-09-23] MEDS: MIDAZOLAM DRIP 50 mg/50mL 50 ML IV SCH ×3 (04:40→21:30)
[2020-09-23] MEDS: ACCU-CHEK COMFORT CURVE STRIP VI SCH ×4 (06:00→18:17)
[2020-09-23] MEDS: METOCLOPRAMIDE HCL 5MG/ml INJ 2ml VIAL IV SCH (06:00)
[2020-09-23] MEDS: InsuLIN REG 1unit/0.01ml Soln (100units/ml) SC SCH ×4 (06:00→18:17)
[2020-09-23] MEDS: DOPamine 1600MCG/ML D5W 250 ML IV SCH ×2 (06:15→09:30)
[2020-09-23 07:15] LABS: Hemoglobin 8.2 g/dL (12.2-16.2); Red Cell Distribution Width 17.3 % (11.8-14.3)
[2020-09-23 07:18] LABS: Mean Corpuscular Hemoglobin 30.9 pg (28.0-32.0); Mean Corpuscular Hgb Conc. 32.9 g/dL (32.0-36.0); Platelet Count (auto) 281 10^3/uL (140-450); Red Blood Cells 2.66 10^6/uL (4.0-5.20); White Blood Cell 15.1 10^3/uL (4.4-10.8)
[2020-09-23 07:25] LABS: Basophils % (manual) 0 (0.0-2.0); Blast Cells 0; Metamyelocytes % 0; Myelocytes % 0; Promyelocytes % 0; Reactive Lymphocytes 0
[2020-09-23 07:34] LABS: Albumin 1.3 g/dL (3.4-5.0); Calcium 8.8 mg/dL (8.5-10.1); Magnesium 2.1 mg/dL (1.6-2.6); Potassium 4.1 mmol/L (3.5-5.1)
[2020-09-23 07:37] LABS: BUN/Creatinine Ratio 98.7; Bilirubin, Total 0.3 mg/dL (0.2-1.0); Phosphorus 3.2 mg/dL (2.5-4.90); Total Protein 6.5 g/dL (6.4-8.2)
[2020-09-23 08:34] LABS: Band Neutrophils % (manual) 2; Eosinophils % (manual) 9 (0-7); Lymphocytes % (manual) 16 (10.0-50.0); Monocytes % (manual) 11 (0-12)
[2020-09-23] MEDS: PANTOPRAZOLE 40 MG/10 ML VIAL INJ IV SCH ×2 (09:18→22:29)
[2020-09-23] MEDS: INSULIN LANTUS (GLARGINE) 1 /0.01ml (100units/ml) SC SCH ×2 (09:18→22:00)
[2020-09-23] MEDS ORDERED: TPN PER PHARMACY IV NR ×18 (20:00)
[2020-09-24] VITALS (102 sets, daily range): BP systolic 99–137; BP diastolic 52–77
[2020-09-24] MEDS: ACCU-CHEK COMFORT CURVE STRIP VI SCH ×4 (00:22→18:21)
[2020-09-24] MEDS: MEROPENEM 1GM IVPB 100 ML IV SCH ×3 (03:10→18:21)
[2020-09-24] MEDS: fentaNYL Drip 2500mCg/250mlNS 250 ML IV SCH ×2 (04:27→16:11)
[2020-09-24] MEDS: MIDAZOLAM DRIP 50 mg/50mL 50 ML IV SCH ×4 (04:28→18:20)
[2020-09-24] MEDS: InsuLIN REG 1unit/0.01ml Soln (100units/ml) SC SCH ×4 (06:00→18:21)
[2020-09-24] MEDS: INSULIN LANTUS (GLARGINE) 1 /0.01ml (100units/ml) SC SCH ×2 (06:31→23:40)
[2020-09-24 07:00] LABS: Albumin 1.3 g/dL (3.4-5.0); Calcium 9.5 mg/dL (8.5-10.1)
[2020-09-24 07:16] LABS: Bilirubin, Total 0.4 mg/dL (0.2-1.0); Phosphorus 3.3 mg/dL (2.5-4.90); Total Protein 6.3 g/dL (6.4-8.2)
[2020-09-24] MEDS: PANTOPRAZOLE 40 MG/10 ML VIAL INJ IV SCH ×2 (09:22→21:34)
[2020-09-24] MEDS: BUMETANIDE INJECTION 12.5 MG in GIVE UN-DILUTED 0 ML IV SCH (09:22)
[2020-09-24] MEDS ORDERED: FLEET ENEMA(ADULT) 135 ML PR ONE (11:00)
[2020-09-24] MEDS ORDERED: TPN PER PHARMACY IV NR ×6 (20:00)
[2020-09-24] MEDS: D5W 5% 1,000 ML IV SCH (20:08)
[2020-09-24] MEDS: DOPamine 1600MCG/ML D5W 250 ML IV SCH (21:07)
[2020-09-24] MEDS: NOREPINEPHRINE 8 MG/250ML KIT 250 ML IV SCH (21:07)
[2020-09-25] VITALS (105 sets, daily range): BP systolic 108–164; BP diastolic 60–99
[2020-09-25] MEDS: ACCU-CHEK COMFORT CURVE STRIP VI SCH ×4 (00:21→17:57)
[2020-09-25] MEDS: InsuLIN REG 1unit/0.01ml Soln (100units/ml) SC SCH ×4 (00:22→17:57)
[2020-09-25] MEDS: MEROPENEM 1GM IVPB 100 ML IV SCH ×3 (02:30→18:03)
[2020-09-25] MEDS: MIDAZOLAM DRIP 50 mg/50mL 50 ML IV SCH ×3 (03:16→17:56)
[2020-09-25 05:06] LABS: Albumin 1.2 g/dL (3.4-5.0)
[2020-09-25 05:09] LABS: BUN/Creatinine Ratio 86.8; Bilirubin, Total 0.4 mg/dL (0.2-1.0); Total Protein 6.4 g/dL (6.4-8.2)
[2020-09-25 05:27] LABS: Potassium 4.2 mmol/L (3.5-5.1)
[2020-09-25] MEDS: fentaNYL Drip 2500mCg/250mlNS 250 ML IV SCH ×2 (05:53→17:58)
[2020-09-25] MEDS: INSULIN LANTUS (GLARGINE) 1 /0.01ml (100units/ml) SC SCH ×2 (06:37→22:25)
[2020-09-25] MEDS: BUMETANIDE INJECTION 12.5 MG in GIVE UN-DILUTED 0 ML IV SCH (09:01)
[2020-09-25] MEDS: PANTOPRAZOLE 40 MG/10 ML VIAL INJ IV SCH ×2 (09:02→22:20)
[2020-09-25] MEDS: D5W 5% 1,000 ML IV SCH (13:27)
[2020-09-25] MEDS: METOCLOPRAMIDE HCL 5MG/ml INJ 2ml VIAL IV SCH ×2 (17:56→22:20)
[2020-09-25] MEDS: Glucerna 1.2 Cal 1Liter BOTTLE GT SCH (20:00)
[2020-09-25] MEDS ORDERED: TPN PER PHARMACY IV NR ×7 (20:00)
[2020-09-26] VITALS (99 sets, daily range): BP systolic 116–178; BP diastolic 60–96
[2020-09-26] MEDS: ACCU-CHEK COMFORT CURVE STRIP VI SCH ×5 (00:05→23:25)
[2020-09-26] MEDS: InsuLIN REG 1unit/0.01ml Soln (100units/ml) SC SCH ×5 (00:06→23:25)
[2020-09-26] MEDS: DOPamine 1600MCG/ML D5W 250 ML IV SCH ×3 (01:14→21:57)
[2020-09-26] MEDS: MEROPENEM 1GM IVPB 100 ML IV SCH ×2 (03:08→09:40)
[2020-09-26 04:45] LABS: Basophils # (auto) 0 10 ^3/uL (0-0.2); Basophils % (auto) 0.3 % (0.0-2.0); Eosinophils # (auto) 0.7 10 ^3/uL (0-0.8); Hematocrit 25.8 % (36.0-46.0); Hemoglobin 8.5 g/dL (12.2-16.2); Lymphocytes # (auto) 1.5 10 ^3/uL (0.4-5.4); Lymphocytes % (auto) 10.3 % (10.0-50.0); Mean Corpuscular Hemoglobin 30.8 pg (28.0-32.0); Mean Corpuscular Hgb Conc. 32.9 g/dL (32.0-36.0); Mean Corpuscular Volume 93.5 fL (80.0-100.0); Monocytes # (auto) 1.8 10 ^3/uL (0-1.3); Monocytes % (auto) 12.5 % (0.0-12.0); Neutrophils # (auto) 10.3 10 ^3/uL (1.6-8.6); Neutrophils % (auto) 71.9 % (37.0-80.0); Nucleated Red Blood Cells % 0.6 %; Platelet Count (auto) 331 10^3/uL (140-450); Red Blood Cells 2.76 10^6/uL (4.0-5.20); White Blood Cell 14.3 10^3/uL (4.4-10.8)
[2020-09-26 05:05] LABS: Albumin 1.3 g/dL (3.4-5.0); Calcium 8.8 mg/dL (8.5-10.1); Magnesium 1.9 mg/dL (1.6-2.6)
[2020-09-26 05:09] LABS: Bilirubin, Total 0.4 mg/dL (0.2-1.0); Phosphorus 3.7 mg/dL (2.5-4.90); Total Protein 6.8 g/dL (6.4-8.2)
[2020-09-26] MEDS: fentaNYL Drip 2500mCg/250mlNS 250 ML IV SCH ×2 (05:13→18:08)
[2020-09-26 05:41] LABS: Potassium 3.8 mmol/L (3.5-5.1)
[2020-09-26] MEDS: NOREPINEPHRINE 8 MG/250ML KIT 250 ML IV SCH (05:55)
[2020-09-26] MEDS: METOCLOPRAMIDE HCL 5MG/ml INJ 2ml VIAL IV SCH ×3 (06:17→21:47)
[2020-09-26] MEDS: INSULIN LANTUS (GLARGINE) 1 /0.01ml (100units/ml) SC SCH ×2 (06:47→21:48)
[2020-09-26] MEDS: MIDAZOLAM DRIP 50 mg/50mL 50 ML IV SCH ×3 (06:48→21:58)
[2020-09-26] MEDS: BUMETANIDE INJECTION 12.5 MG in GIVE UN-DILUTED 0 ML IV SCH ×2 (09:40→21:58)
[2020-09-26] MEDS: PANTOPRAZOLE 40 MG/10 ML VIAL INJ IV SCH ×2 (09:40→21:47)
[2020-09-26] MEDS: D5W 5% 1,000 ML IV SCH (10:11)
[2020-09-26] MEDS ORDERED: TPN PER PHARMACY IV NR ×7 (20:00)
[2020-09-26] MEDS ORDERED: ONDANSETRON HCL 4 MG/2 ML VIAL ONE (23:33)
[2020-09-27] VITALS (100 sets, daily range): BP systolic 108–155; BP diastolic 56–88
[2020-09-27 03:38] LABS: Eosinophils # (auto) 0.7 10 ^3/uL (0-0.8); Hemoglobin 8.4 g/dL (12.2-16.2)
[2020-09-27 03:40] LABS: Basophils # (auto) 0.1 10 ^3/uL (0-0.2); Basophils % (auto) 0.4 % (0.0-2.0); Eosinophils % (auto) 4.5 % (0.0-7.0); Hematocrit 25.8 % (36.0-46.0); Lymphocytes % (auto) 6.7 % (10.0-50.0); Mean Corpuscular Hgb Conc. 32.6 g/dL (32.0-36.0); Mean Corpuscular Volume 91.9 fL (80.0-100.0); Monocytes # (auto) 1.6 10 ^3/uL (0-1.3); Monocytes % (auto) 11.2 % (0.0-12.0); Neutrophils # (auto) 11.2 10 ^3/uL (1.6-8.6); Neutrophils % (auto) 77.2 % (37.0-80.0); Nucleated Red Blood Cells % 0.3 %; Platelet Count (auto) 310 10^3/uL (140-450); Red Blood Cells 2.81 10^6/uL (4.0-5.20); White Blood Cell 14.5 10^3/uL (4.4-10.8)
[2020-09-27 03:54] LABS: Albumin 1.3 g/dL (3.4-5.0); Calcium 8.6 mg/dL (8.5-10.1); Magnesium 1.9 mg/dL (1.6-2.6); Potassium 4.2 mmol/L (3.5-5.1)
[2020-09-27 03:57] LABS: BUN/Creatinine Ratio 79.8; Bilirubin, Total 0.4 mg/dL (0.2-1.0); Phosphorus 4.3 mg/dL (2.5-4.90); Total Protein 6.9 g/dL (6.4-8.2)
[2020-09-27] MEDS: METOCLOPRAMIDE HCL 5MG/ml INJ 2ml VIAL IV SCH ×3 (06:11→21:45)
[2020-09-27] MEDS: ACCU-CHEK COMFORT CURVE STRIP VI SCH ×3 (06:11→17:13)
[2020-09-27] MEDS: InsuLIN REG 1unit/0.01ml Soln (100units/ml) SC SCH ×3 (06:12→17:13)
[2020-09-27] MEDS: INSULIN LANTUS (GLARGINE) 1 /0.01ml (100units/ml) SC SCH ×2 (06:15→22:47)
[2020-09-27] MEDS: D5W 5% 1,000 ML IV SCH ×2 (07:00→07:30)
[2020-09-27] MEDS: MIDAZOLAM DRIP 50 mg/50mL 50 ML IV SCH (07:00)
[2020-09-27] MEDS: NOREPINEPHRINE 8 MG/250ML KIT 250 ML IV SCH (08:00)
[2020-09-27] MEDS: PANTOPRAZOLE 40 MG/10 ML VIAL INJ IV SCH ×2 (10:00→21:45)
[2020-09-27] MEDS: fentaNYL Drip 2500mCg/250mlNS 250 ML IV SCH (17:24)
[2020-09-27] MEDS: DOPamine 1600MCG/ML D5W 250 ML IV SCH (17:24)
[2020-09-27] MEDS ORDERED: TPN PER PHARMACY IV NR ×8 (20:00)
[2020-09-27] MEDS ORDERED: ONDANSETRON HCL 4 MG/2 ML VIAL IV ONE (23:30)
[2020-09-28] VITALS (101 sets, daily range): BP systolic 107–158; BP diastolic 57–91
[2020-09-28] MEDS: ACCU-CHEK COMFORT CURVE STRIP VI SCH ×4 (00:13→18:00)
[2020-09-28] MEDS: InsuLIN REG 1unit/0.01ml Soln (100units/ml) SC SCH ×5 (00:16→23:56)
[2020-09-28] MEDS: METOCLOPRAMIDE HCL 5MG/ml INJ 2ml VIAL IV SCH ×3 (06:23→20:52)
[2020-09-28] MEDS: INSULIN LANTUS (GLARGINE) 1 /0.01ml (100units/ml) SC SCH ×2 (06:24→21:19)
[2020-09-28 06:46] LABS: Alanine Aminotransferase < 6 U/L (13-56); Albumin 1.5 g/dL (3.4-5.0); Anion Gap 15 (5-15); Aspartate Aminotransferase 59 U/L (15-37); BUN/Creatinine Ratio 16.3; Blood Urea Nitrogen 38 mg/dL (7-18); Calcium 7.3 mg/dL (8.5-10.1); Carbon Dioxide 21 mmol/L (21-32); Chloride 94 mmol/L (98-107); GFR African American 28 mL/min; GFR Non-African American 23 mL/min; Glucose 113 mg/dL (74-106); Sodium 130 mmol/L (136-145)
[2020-09-28 06:49] LABS: Alkaline Phosphatase 274 U/L (45-117); Bilirubin, Total 2.3 mg/dL (0.2-1.0); Total Protein 6.2 g/dL (6.4-8.2)
[2020-09-28] MEDS: NOREPINEPHRINE 8 MG/250ML KIT 250 ML IV SCH (08:00)
[2020-09-28] MEDS: PANTOPRAZOLE 40 MG/10 ML VIAL INJ IV SCH ×2 (08:40→20:52)
[2020-09-28] MEDS: MIDAZOLAM DRIP 50 mg/50mL 50 ML IV SCH ×3 (08:43→22:18)
[2020-09-28 08:54] LABS: Triglycerides 120 mg/dL (< 150)
[2020-09-28 08:59] LABS: Pre Albumin 18.8 mg/dL (20.0-40.0)
[2020-09-28] MEDS: POTASSIUM CHL 20MEQ/100ML 100 ML IV SCH ×2 (14:12→16:43)
[2020-09-28] MEDS: fentaNYL Drip 2500mCg/250mlNS 250 ML IV SCH (16:43)
[2020-09-28] MEDS: BUMETANIDE INJECTION 12.5 MG in GIVE UN-DILUTED 0 ML IV SCH (16:44)
[2020-09-28] MEDS ORDERED: TPN PER PHARMACY IV NR ×10 (20:00)
[2020-09-29] VITALS (102 sets, daily range): BP systolic 85–175; BP diastolic 43–97
[2020-09-29] MEDS: DOPamine 1600MCG/ML D5W 250 ML IV SCH ×2 (01:57→08:31)
[2020-09-29] MEDS: InsuLIN REG 1unit/0.01ml Soln (100units/ml) SC SCH ×4 (05:05→23:31)
[2020-09-29 05:29] LABS: Albumin 1.4 g/dL (3.4-5.0); BUN/Creatinine Ratio 68.7; Magnesium 2.1 mg/dL (1.6-2.6); Potassium 4.4 mmol/L (3.5-5.1)
[2020-09-29 05:32] LABS: Bilirubin, Total 0.4 mg/dL (0.2-1.0); Total Protein 7.4 g/dL (6.4-8.2)
[2020-09-29] MEDS: METOCLOPRAMIDE HCL 5MG/ml INJ 2ml VIAL IV SCH ×3 (05:35→21:14)
[2020-09-29] MEDS: ACCU-CHEK COMFORT CURVE STRIP VI SCH ×5 (05:35→23:30)
[2020-09-29] MEDS: INSULIN LANTUS (GLARGINE) 1 /0.01ml (100units/ml) SC SCH ×2 (05:36→21:37)
[2020-09-29] MEDS: BUMETANIDE INJECTION 12.5 MG in GIVE UN-DILUTED 0 ML IV SCH (05:37)
[2020-09-29] MEDS: MIDAZOLAM DRIP 50 mg/50mL 50 ML IV SCH (05:39)
[2020-09-29] MEDS: hydrALAZINE HCL 20 MG/ML VL IV PRN (06:45)
[2020-09-29] MEDS: NOREPINEPHRINE 8 MG/250ML KIT 250 ML IV SCH (07:28)
[2020-09-29] MEDS: PANTOPRAZOLE 40 MG/10 ML VIAL INJ IV SCH ×2 (08:30→21:14)
[2020-09-29] MEDS: fentaNYL Drip 2500mCg/250mlNS 250 ML IV SCH (08:34)
[2020-09-29] MEDS: ROCURONIUM 10MG/ML 10ML VIAL IV PRN (12:59)
[2020-09-29] MEDS: PROPOFOL 100 ML IV SCH (13:41)
[2020-09-29] MEDS ORDERED: TPN PER PHARMACY IV NR ×6 (20:00)
[2020-09-30] VITALS (102 sets, daily range): BP systolic 85–137; BP diastolic 40–68
[2020-09-30 05:10] LABS: Basophils # (auto) 0.1 10 ^3/uL (0-0.2); Basophils % (auto) 0.5 % (0.0-2.0); Hemoglobin 8.3 g/dL (12.2-16.2); Lymphocytes # (auto) 1.4 10 ^3/uL (0.4-5.4); Nucleated Red Blood Cells % 0.2 %
[2020-09-30] MEDS: ACCU-CHEK COMFORT CURVE STRIP VI SCH ×4 (05:10→23:40)
[2020-09-30] MEDS: METOCLOPRAMIDE HCL 5MG/ml INJ 2ml VIAL IV SCH ×3 (05:10→22:35)
[2020-09-30 05:12] LABS: Eosinophils # (auto) 1.1 10 ^3/uL (0-0.8); Eosinophils % (auto) 7.5 % (0.0-7.0); Hematocrit 25.3 % (36.0-46.0); Lymphocytes % (auto) 9.2 % (10.0-50.0); Mean Corpuscular Hemoglobin 29.8 pg (28.0-32.0); Mean Corpuscular Hgb Conc. 32.9 g/dL (32.0-36.0); Mean Corpuscular Volume 90.7 fL (80.0-100.0); Monocytes # (auto) 1.6 10 ^3/uL (0-1.3); Neutrophils # (auto) 10.7 10 ^3/uL (1.6-8.6); Neutrophils % (auto) 71.8 % (37.0-80.0); Platelet Count (auto) 387 10^3/uL (140-450); Red Blood Cells 2.79 10^6/uL (4.0-5.20); Red Cell Distribution Width 18.8 % (11.8-14.3); White Blood Cell 14.9 10^3/uL (4.4-10.8)
[2020-09-30] MEDS: InsuLIN REG 1unit/0.01ml Soln (100units/ml) SC SCH ×4 (05:12→23:39)
[2020-09-30 05:27] LABS: Potassium 4.1 mmol/L (3.5-5.1)
[2020-09-30 05:34] LABS: Albumin 1.3 g/dL (3.4-5.0); Bilirubin, Total 0.5 mg/dL (0.2-1.0); Calcium 9.2 mg/dL (8.5-10.1); Magnesium 2.6 mg/dL (1.6-2.6); Phosphorus 5.3 mg/dL (2.5-4.90); Total Protein 7.2 g/dL (6.4-8.2)
[2020-09-30] MEDS: INSULIN LANTUS (GLARGINE) 1 /0.01ml (100units/ml) SC SCH ×2 (06:00→22:34)
[2020-09-30] MEDS: BUMETANIDE INJECTION 12.5 MG in GIVE UN-DILUTED 0 ML IV SCH (06:00)
[2020-09-30] MEDS: IPRATROPIUM BROM 0.5 MG/2.5ML INH SOL NEB PRN (07:09)
[2020-09-30] MEDS: ALBUTEROL SULF 2.5 MG/0.5ML(0.5%) NEB SOLN NEB PRN (07:10)
[2020-09-30] MEDS: NOREPINEPHRINE 8 MG/250ML KIT 250 ML IV SCH (08:00)
[2020-09-30] MEDS: fentaNYL Drip 2500mCg/250mlNS 250 ML IV SCH ×2 (09:38→22:26)
[2020-09-30] MEDS: PANTOPRAZOLE 40 MG/10 ML VIAL INJ IV SCH ×2 (09:45→22:35)
[2020-09-30] MEDS: PROPOFOL 100 ML IV SCH ×2 (10:39→23:00)
[2020-09-30] MEDS: MIDAZOLAM DRIP 50 mg/50mL 50 ML IV SCH ×2 (18:20→23:00)
[2020-09-30] MEDS ORDERED: TPN PER PHARMACY IV NR ×6 (20:00)
[2020-09-30] MEDS: DOPamine 1600MCG/ML D5W 250 ML IV SCH (22:49)
[2020-10-01] VITALS (108 sets, daily range): BP systolic 11–168; BP diastolic 50–91
[2020-10-01] MEDS: MIDAZOLAM DRIP 50 mg/50mL 50 ML IV SCH ×5 (02:00→23:36)
[2020-10-01] MEDS: PROPOFOL 100 ML IV SCH ×2 (04:00→13:30)
[2020-10-01 05:05] LABS: Basophils # (auto) 0.1 10 ^3/uL (0-0.2); Basophils % (auto) 0.4 % (0.0-2.0); Eosinophils # (auto) 1.2 10 ^3/uL (0-0.8); Eosinophils % (auto) 6.3 % (0.0-7.0); Hematocrit 25.7 % (36.0-46.0); Hemoglobin 8.5 g/dL (12.2-16.2); Lymphocytes # (auto) 1.7 10 ^3/uL (0.4-5.4); Mean Corpuscular Hemoglobin 29.1 pg (28.0-32.0); Mean Corpuscular Volume 88.2 fL (80.0-100.0); Monocytes # (auto) 1.8 10 ^3/uL (0-1.3); Monocytes % (auto) 9.6 % (0.0-12.0); Neutrophils # (auto) 14.1 10 ^3/uL (1.6-8.6); Neutrophils % (auto) 74.7 % (37.0-80.0); Nucleated Red Blood Cells % 0.4 %; Platelet Count (auto) 426 10^3/uL (140-450); Red Blood Cells 2.91 10^6/uL (4.0-5.20); Red Cell Distribution Width 18.6 % (11.8-14.3); White Blood Cell 18.9 10^3/uL (4.4-10.8)
[2020-10-01 05:33] LABS: Albumin 1.5 g/dL (3.4-5.0); Bilirubin, Total 0.6 mg/dL (0.2-1.0); Calcium 9.1 mg/dL (8.5-10.1); Magnesium 2.2 mg/dL (1.6-2.6); Phosphorus 4.8 mg/dL (2.5-4.90); Total Protein 7.5 g/dL (6.4-8.2)
[2020-10-01] MEDS: METOCLOPRAMIDE HCL 5MG/ml INJ 2ml VIAL IV SCH ×3 (06:47→23:33)
[2020-10-01] MEDS: InsuLIN REG 1unit/0.01ml Soln (100units/ml) SC SCH ×5 (06:49→23:39)
[2020-10-01] MEDS: ACCU-CHEK COMFORT CURVE STRIP VI SCH ×4 (06:50→23:35)
[2020-10-01] MEDS: INSULIN LANTUS (GLARGINE) 1 /0.01ml (100units/ml) SC SCH ×2 (07:09→23:35)
[2020-10-01] MEDS: NOREPINEPHRINE 8 MG/250ML KIT 250 ML IV SCH (08:00)
[2020-10-01] MEDS: PANTOPRAZOLE 40 MG/10 ML VIAL INJ IV SCH ×2 (10:10→23:33)
[2020-10-01] MEDS: fentaNYL Drip 2500mCg/250mlNS 250 ML IV SCH ×2 (10:23→23:40)
[2020-10-01] MEDS: Glucerna 1.2 Cal 1Liter BOTTLE GT SCH (14:29)
[2020-10-01] MEDS: DOPamine 1600MCG/ML D5W 250 ML IV SCH (17:30)
[2020-10-01] MEDS ORDERED: TPN PER PHARMACY IV NR ×7 (20:00)
[2020-10-02] VITALS (66 sets, daily range): BP systolic 97–180; BP diastolic 44–93
[2020-10-02] MEDS: MIDAZOLAM DRIP 50 mg/50mL 50 ML IV SCH ×5 (03:38→21:00)
[2020-10-02 05:02] LABS: Albumin 1.4 g/dL (3.4-5.0); Calcium 8.8 mg/dL (8.5-10.1); Magnesium 1.7 mg/dL (1.6-2.6); Potassium 3.6 mmol/L (3.5-5.1)
[2020-10-02 05:06] LABS: BUN/Creatinine Ratio 81.3; Bilirubin, Total 0.6 mg/dL (0.2-1.0); Phosphorus 3.7 mg/dL (2.5-4.90); Total Protein 7.3 g/dL (6.4-8.2)
[2020-10-02] MEDS: METOCLOPRAMIDE HCL 5MG/ml INJ 2ml VIAL IV SCH ×3 (06:43→21:52)
[2020-10-02] MEDS: ACCU-CHEK COMFORT CURVE STRIP VI SCH ×3 (06:43→17:37)
[2020-10-02] MEDS: INSULIN LANTUS (GLARGINE) 1 /0.01ml (100units/ml) SC SCH ×2 (06:44→21:54)
[2020-10-02] MEDS: InsuLIN REG 1unit/0.01ml Soln (100units/ml) SC SCH ×3 (06:44→18:00)
[2020-10-02] MEDS: NOREPINEPHRINE 8 MG/250ML KIT 250 ML IV SCH (08:00)
[2020-10-02] MEDS: PANTOPRAZOLE 40 MG/10 ML VIAL INJ IV SCH ×2 (10:00→21:52)
[2020-10-02] MEDS: fentaNYL Drip 2500mCg/250mlNS 250 ML IV SCH (10:35)
[2020-10-02] MEDS: MAGNESIUM SULFATE 1GM/100ML 100 ML IV SCH ×3 (13:20→15:45)
[2020-10-02] MEDS: PROPOFOL 100 ML IV SCH ×2 (13:30→23:00)
[2020-10-02] MEDS: IPRATROPIUM BROM 0.5 MG/2.5ML INH SOL NEB PRN (19:01)
[2020-10-02] MEDS: ALBUTEROL SULF 2.5 MG/0.5ML(0.5%) NEB SOLN NEB PRN (19:02)
[2020-10-02] MEDS ORDERED: TPN PER PHARMACY IV NR ×9 (20:00)
[2020-10-02] MEDS: DOPamine 1600MCG/ML D5W 250 ML IV SCH (20:05)
[2020-10-02] MEDS: hydrALAZINE HCL 20 MG/ML VL IV PRN (22:36)
[2020-10-03] VITALS (80 sets, daily range): BP systolic 11–141; BP diastolic 40–87
[2020-10-03] MEDS: MIDAZOLAM DRIP 50 mg/50mL 50 ML IV SCH ×5 (00:11→23:00)
[2020-10-03] MEDS: fentaNYL Drip 2500mCg/250mlNS 250 ML IV SCH ×2 (00:33→14:55)
[2020-10-03 05:01] LABS: Albumin 1.3 g/dL (3.4-5.0); Calcium 8.8 mg/dL (8.5-10.1); Magnesium 2.4 mg/dL (1.6-2.6)
[2020-10-03 05:06] LABS: Bilirubin, Total 0.4 mg/dL (0.2-1.0); Phosphorus 5.2 mg/dL (2.5-4.90); Total Protein 7.2 g/dL (6.4-8.2)
[2020-10-03] MEDS: PROPOFOL 100 ML IV SCH ×2 (05:30→14:56)
[2020-10-03] MEDS: ACCU-CHEK COMFORT CURVE STRIP VI SCH ×5 (06:05→23:52)
[2020-10-03] MEDS: METOCLOPRAMIDE HCL 5MG/ml INJ 2ml VIAL IV SCH ×3 (06:05→22:25)
[2020-10-03] MEDS: InsuLIN REG 1unit/0.01ml Soln (100units/ml) SC SCH ×5 (06:06→23:54)
[2020-10-03] MEDS: INSULIN LANTUS (GLARGINE) 1 /0.01ml (100units/ml) SC SCH ×2 (06:43→22:26)
[2020-10-03] MEDS: NOREPINEPHRINE 8 MG/250ML KIT 250 ML IV SCH (08:00)
[2020-10-03] MEDS: PANTOPRAZOLE 40 MG/10 ML VIAL INJ IV SCH ×2 (10:00→22:25)
[2020-10-03] MEDS: ALBUTEROL SULF 2.5 MG/0.5ML(0.5%) NEB SOLN NEB PRN (13:04)
[2020-10-03] MEDS: IPRATROPIUM BROM 0.5 MG/2.5ML INH SOL NEB PRN (13:04)
[2020-10-03] MEDS: DOPamine 1600MCG/ML D5W 250 ML IV SCH (17:30)
[2020-10-03] MEDS ORDERED: TPN PER PHARMACY IV NR ×7 (20:00)
[2020-10-04] VITALS (88 sets, daily range): BP systolic 82–154; BP diastolic 42–72
[2020-10-04] MEDS: fentaNYL Drip 2500mCg/250mlNS 250 ML IV SCH ×3 (01:31→21:27)
[2020-10-04] MEDS: MIDAZOLAM DRIP 50 mg/50mL 50 ML IV SCH ×3 (01:32→21:27)
[2020-10-04] MEDS: ACCU-CHEK COMFORT CURVE STRIP VI SCH ×3 (05:55→18:00)
[2020-10-04] MEDS: METOCLOPRAMIDE HCL 5MG/ml INJ 2ml VIAL IV SCH ×3 (05:55→20:36)
[2020-10-04] MEDS: InsuLIN REG 1unit/0.01ml Soln (100units/ml) SC SCH ×3 (05:56→18:00)
[2020-10-04] MEDS: INSULIN LANTUS (GLARGINE) 1 /0.01ml (100units/ml) SC SCH ×2 (06:33→20:36)
[2020-10-04] MEDS: NOREPINEPHRINE 8 MG/250ML KIT 250 ML IV SCH (08:00)
[2020-10-04 09:55] LABS: Albumin 1.3 g/dL (3.4-5.0); Calcium 9.4 mg/dL (8.5-10.1); Magnesium 2.7 mg/dL (1.6-2.6); Potassium 4.9 mmol/L (3.5-5.1)
[2020-10-04 10:00] LABS: BUN/Creatinine Ratio 88.8; Bilirubin, Total 0.3 mg/dL (0.2-1.0); Phosphorus 6.9 mg/dL (2.5-4.90); Pre Albumin 18.5 mg/dL (20.0-40.0); Total Protein 7.1 g/dL (6.4-8.2)
[2020-10-04] MEDS: PROPOFOL 100 ML IV SCH ×4 (10:00→21:26)
[2020-10-04] MEDS: PANTOPRAZOLE 40 MG/10 ML VIAL INJ IV SCH ×2 (10:00→20:36)
[2020-10-04] MEDS: DOPamine 1600MCG/ML D5W 250 ML IV SCH (17:09)
[2020-10-04] MEDS: IPRATROPIUM BROM 0.5 MG/2.5ML INH SOL NEB PRN (18:55)
[2020-10-04] MEDS: ALBUTEROL SULF 2.5 MG/0.5ML(0.5%) NEB SOLN NEB PRN (18:55)
[2020-10-04] MEDS ORDERED: TPN PER PHARMACY IV NR ×7 (20:00)
== END 2020-10-04 22:00 | DRG 720 ==
LOC: EDBD 13:59 → ER 13:59 → TELE 14:00 → TELE-EAST 23:04 → ICU WEST 08-24 11:25
PROVIDERS: ADMIT Hospitalist; ATTEND Internal Medicine
PROC: XW033H5 Introduction of Tocilizumab into Peripheral Vein, Percutaneous Approach, New Technology Group 5 (ICD-10-PCS; 2020-08-22)
PROC: XW033E5 Introduction of Remdesivir Anti-infective into Peripheral Vein, Percutaneous Approach, New Technology Group 5 (ICD-10-PCS; 2020-08-22)
PROC: 05HA33Z Insertion of Infusion Device into Left Brachial Vein, Percutaneous Approach (ICD-10-PCS; 2020-08-23)
PROC: B54NZZA Ultrasonography of Left Upper Extremity Veins, Guidance (ICD-10-PCS; 2020-08-23)
PROC: 5A1955Z Respiratory Ventilation, Greater than 96 Consecutive Hours (ICD-10-PCS; principal; 2020-08-24)
PROC: 0BH17EZ Insertion of Endotracheal Airway into Trachea, Via Natural or Artificial Opening (ICD-10-PCS; 2020-08-24)
PROC: 5A12012 Performance of Cardiac Output, Single, Manual (ICD-10-PCS; 2020-08-24)
PROC: 02HV33Z Insertion of Infusion Device into Superior Vena Cava, Percutaneous Approach (ICD-10-PCS; 2020-08-24)
PROC: 30233N1 Transfusion of Nonautologous Red Blood Cells into Peripheral Vein, Percutaneous Approach (ICD-10-PCS; 2020-09-08)
DX: A41.89 Other specified sepsis (principal); U07.1 COVID-19; J12.82 Pneumonia due to coronavirus disease 2019; J96.01 Acute respiratory failure with hypoxia; E66.01 Morbid (severe) obesity due to excess calories; I25.5 Ischemic cardiomyopathy; D64.9 Anemia, unspecified; N18.31 Chronic kidney disease, stage 3a; N17.0 Acute kidney failure with tubular necrosis; E11.22 Type 2 diabetes mellitus with diabetic chronic kidney disease; E43 Unspecified severe protein-calorie malnutrition; E78.5 Hyperlipidemia, unspecified; E87.4 Mixed disorder of acid-base balance; J96.02 Acute respiratory failure with hypercapnia; J44.0 Chronic obstructive pulmonary disease with (acute) lower respiratory infection; D68.59 Other primary thrombophilia; I50.21 Acute systolic (congestive) heart failure; E11.65 Type 2 diabetes mellitus with hyperglycemia; F17.210 Nicotine dependence, cigarettes, uncomplicated; I13.0 Hypertensive heart and chronic kidney disease with heart failure and stage 1 through stage 4 chronic kidney disease, or unspecified chronic kidney disease; I25.10 Atherosclerotic heart disease of native coronary artery without angina pectoris; F03.90 Unspecified dementia, unspecified severity, without behavioral disturbance, psychotic disturbance, mood disturbance, and anxiety; R65.21 Severe sepsis with septic shock; E87.5 Hyperkalemia; E87.0 Hyperosmolality and hypernatremia; G93.1 Anoxic brain damage, not elsewhere classified; R56.9 Unspecified convulsions; K56.0 Paralytic ileus; Z68.30 Body mass index [BMI] 30.0-30.9, adult; Z66 Do not resuscitate; D89.834 Cytokine release syndrome, grade 4
CPT/HCPCS: 36415; 36600; 71045; 71046; 74018; 76775; 80048; 80053; 80061; 80307; 81001; 82040; 82306; 82570; 82728; 82805; 82962; 83036; 83540; 83550; 83605; 83615; 83735; 83880; 83970; 84100; 84132; 84300; 84443; 84478; 84484; 85007; 85014; 85018; 85025; 85027; 85045; 85379; 85610; 85730; 86141; 86850; 86900; 86901; 86920; 87040; 87070; 87077; 87081; 87086; 87186; 87205; 87426; 87804; 93005; 93306; 94002; 94003; 94640; 96365; 96366; 96372; 96375; C9113; G0378; J0610; J0696; J1100; J1450; J1815; J2185; J2250; J2405; J2543; J2704; J3480; J3490; J7060; J7131